=== PATIENT | male | born 1955 | race Caucasian/White ===

== ENCOUNTER 2021-09-12 12:39 | Outpatient (CLI) | payer OTHER ==
[2021-09-13 11:36] LABS: SARS-CoV-2 PCR by NAA Not Detected (NotDetected)
== END 2021-09-12 12:40 | disposition home or self-care (01) ==
LOC: LABBT 12:39
PROVIDERS: ATTEND Internal Medicine
DX: Z01.812 Encounter for preprocedural laboratory examination (principal); Z20.822 Contact with and (suspected) exposure to COVID-19; K59.00 Constipation, unspecified; Z86.010 Personal history of colon polyps
CPT/HCPCS: U0003; U0005

== ENCOUNTER 2021-09-17 06:42 | Day surgery (SDC) | payer OTHER ==
[2021-09-11 11:20] VITALS: BMI 42.3
[2021-09-17] MEDS ORDERED: PROPOFOL 200 MG/20 ML VIAL ONE (09:15)
[2021-09-17] MEDS ORDERED: Lidocaine 1% PF 5 ML VIAL ONE (09:15)
== END 2021-09-17 10:55 | disposition home or self-care (01) ==
LOC: SDC 06:42
PROVIDERS: ATTEND Internal Medicine
PROC: 0DBP8ZX Excision of Rectum, Via Natural or Artificial Opening Endoscopic, Diagnostic (ICD-10-PCS; principal; 2021-09-17)
PROC: 0DBM8ZX Excision of Descending Colon, Via Natural or Artificial Opening Endoscopic, Diagnostic (ICD-10-PCS; principal; 2021-09-17)
PROC: 0DBH8ZX Excision of Cecum, Via Natural or Artificial Opening Endoscopic, Diagnostic (ICD-10-PCS; principal; 2021-09-17)
PROC: 0DBL8ZX Excision of Transverse Colon, Via Natural or Artificial Opening Endoscopic, Diagnostic (ICD-10-PCS; principal; 2021-09-17)
DX: Z12.11 Encounter for screening for malignant neoplasm of colon (principal); D12.0 Benign neoplasm of cecum; D12.3 Benign neoplasm of transverse colon; D12.4 Benign neoplasm of descending colon; D12.8 Benign neoplasm of rectum; Q43.8 Other specified congenital malformations of intestine; K57.30 Diverticulosis of large intestine without perforation or abscess without bleeding; K59.09 Other constipation; E11.9 Type 2 diabetes mellitus without complications; I10 Essential (primary) hypertension; G47.30 Sleep apnea, unspecified; M48.00 Spinal stenosis, site unspecified; E66.01 Morbid (severe) obesity due to excess calories; Z68.41 Body mass index [BMI] 40.0-44.9, adult; Z86.010 Personal history of colon polyps; Z87.891 Personal history of nicotine dependence; Z79.4 Long term (current) use of insulin; Z79.899 Other long term (current) drug therapy
CPT/HCPCS: 36416; 88305; J2704

== ENCOUNTER 2021-11-11 17:54 | Outpatient (CLI) | payer OTHER ==
[2021-11-11 18:52] LABS: #Eosinphils 0.1 10x3/uL (0.0-0.5); #Monocytes 0.5 10x3/uL (0.0-1.1); #Neutrophils 4.2 10x3/uL (1.5-8.4); %Basophils 0.5 % (0.0-2.0); %Eosinophils 0.8 % (0.0-6.0); %Lymphocytes 26.4 % (18.0-47.0); %Monocytes 8.2 % (0.0-10.0); %Neutrophils 63.6 % (40.0-75.0); Hemoglobin 15.7 g/dL (13.5-17.5); Mean Corpuscular HGB CONC 32.6 g/dL (32.0-36.0); Mean Corpuscular Hemoglobin 29.7 pg (27.0-33.0); Mean Corpuscular Volume 91.1 fl (81.2-95.1); Mean Platelet Volume 11.9 fl (7.4-10.4); Platelet Count 157 10x3/uL (150-450); RBC Distribution Width 14.7 % (11.5-14.5); Red Blood Cell (RBC) Count 5.28 10x6/uL (4.32-5.72); White Blood Cell (WBC) Count 6.6 10x3/uL (3.5-10.5)
[2021-11-11 19:03] LABS: Anion Gap 16 mmol/L (10-20); BUN (Urea Nitrogen) 19 mg/dL (8.4-25.7); Calc. Creatinine Clearance 0 mL/min (70-130); Calcium 9.4 mg/dL (7.8-10.44); Carbon Dioxide 27 mmol/L (23-31); Chloride 105 mmol/L (98-107); Glucose 83 mg/dL (80-115); Potassium 5.2 mmol/L (3.5-5.1); Sodium 143 mmol/L (136-145)
[2021-11-12 14:33] LABS: SARS-CoV-2 PCR by NAA Not Detected (NotDetected)
== END 2021-11-11 17:55 | disposition home or self-care (01) ==
LOC: LABBT 17:54
PROVIDERS: ATTEND Internal Medicine
DX: Z01.818 Encounter for other preprocedural examination (principal); G56.02 Carpal tunnel syndrome, left upper limb; Z20.822 Contact with and (suspected) exposure to COVID-19
CPT/HCPCS: 80048; 85025; 93005; 93010; U0003; U0005

== ENCOUNTER 2021-11-14 09:43 | Day surgery (SDC) | payer OTHER ==
[2021-11-08 10:44] VITALS: BMI 42.3
[2021-11-14] MEDS ORDERED: Fentanyl 250 MCG/5 ML VIAL ONE (12:19)
[2021-11-14] MEDS ORDERED: Dexmedetomidine 200 MCG/2 ML VIAL ONE (12:20)
[2021-11-14] MEDS ORDERED: Xylocaine 1% w/ Epi 1:100K 10 ML VIAL ONE (12:39)
[2021-11-14] MEDS ORDERED: ceFAZolin 2 GM/Dextrose 50 ML IVPB ONE (15:02)
[2021-11-14] MEDS ORDERED: Lidocaine 1% PF 5 ML VIAL ONE (15:02)
[2021-11-14] MEDS ORDERED: PROPOFOL 200 MG/20 ML VIAL ONE (15:02)
[2021-11-14] MEDS ORDERED: Ondansetron PF 4 MG/2 ML Vial ONE (15:02)
[2021-11-14] MEDS ORDERED: Dexamethasone 20 MG/5 ML VIAL ONE (15:02)
== END 2021-11-14 17:28 | disposition home or self-care (01) ==
LOC: SDC 09:43
PROVIDERS: ATTEND Orthopaedic Surgery
PROC: 01N50ZZ Release Median Nerve, Open Approach (ICD-10-PCS; principal; 2021-11-14)
DX: G56.02 Carpal tunnel syndrome, left upper limb (principal); E11.9 Type 2 diabetes mellitus without complications; M10.9 Gout, unspecified; I10 Essential (primary) hypertension; Z79.4 Long term (current) use of insulin; Z79.84 Long term (current) use of oral hypoglycemic drugs; Z79.899 Other long term (current) drug therapy
CPT/HCPCS: 36416; J0690; J1100; J2405; J2704; J3010

== ENCOUNTER 2022-03-10 12:50 | Outpatient (CLI) | payer OTHER ==
[2022-03-10 13:30] LABS: #Eosinphils 0.2 10x3/uL (0.0-0.5); #Monocytes 0.3 10x3/uL (0.0-1.1); #Neutrophils 2.6 10x3/uL (1.5-8.4); %Basophils 0.6 % (0.0-2.0); %Eosinophils 3.5 % (0.0-6.0); %Monocytes 6.9 % (0.0-10.0); %Neutrophils 54.4 % (40.0-75.0); Hemoglobin 14.7 g/dL (13.5-17.5); Mean Corpuscular HGB CONC 33.3 g/dL (32.0-36.0); Mean Corpuscular Hemoglobin 30.2 pg (27.0-33.0); Mean Corpuscular Volume 90.6 fl (81.2-95.1); Mean Platelet Volume 11.9 fl (7.4-10.4); Platelet Count 151 10x3/uL (150-450); Red Blood Cell (RBC) Count 4.87 10x6/uL (4.32-5.72); White Blood Cell (WBC) Count 4.8 10x3/uL (3.5-10.5)
== END 2022-03-10 12:51 | disposition home or self-care (01) ==
LOC: LABBT 12:50
PROVIDERS: ATTEND Family Medicine
DX: Z01.818 Encounter for other preprocedural examination (principal); G56.01 Carpal tunnel syndrome, right upper limb; Z20.822 Contact with and (suspected) exposure to COVID-19
CPT/HCPCS: 85025; 93005; 93010; U0003; U0005

== ENCOUNTER 2022-03-13 09:00 | Day surgery (SDC) | payer OTHER ==
[2022-03-11 13:56] VITALS: BMI 41.5
[2022-03-13] MEDS ORDERED: Lidocaine 1% w/Epinephrine 1:100K 20 ML VIAL ONE (12:43)
[2022-03-13] MEDS ORDERED: fentaNYL Citrate/PF 100 MCG/2 ML SYRINGE ONE (12:54)
[2022-03-13] MEDS ORDERED: CEFAZOLIN 2 GM VIAL ONE (12:54)
[2022-03-13] MEDS ORDERED: Sodium Chloride 0.9% 100 ML ONE (12:54)
[2022-03-13] MEDS ORDERED: Lidocaine 1% PF 5 ML VIAL ONE (13:02)
[2022-03-13] MEDS ORDERED: Ketorolac Tromethamine 30 MG/ML VIAL ONE (13:02)
[2022-03-13] MEDS ORDERED: Ondansetron PF 4 MG/2 ML Vial ONE (13:02)
[2022-03-13] MEDS ORDERED: PROPOFOL 200 MG/20 ML VIAL ONE (13:02)
[2022-03-13] MEDS ORDERED: HYDROcodone/Acetaminophen 5/325 mg Tablet ONE (14:50)
== END 2022-03-13 15:17 | disposition home or self-care (01) ==
LOC: SDC 09:00
PROVIDERS: ATTEND Orthopaedic Surgery
PROC: 01N50ZZ Release Median Nerve, Open Approach (ICD-10-PCS; principal; 2022-03-13)
DX: G56.01 Carpal tunnel syndrome, right upper limb (principal); G89.29 Other chronic pain; E11.9 Type 2 diabetes mellitus without complications; M10.9 Gout, unspecified; I10 Essential (primary) hypertension; Z79.4 Long term (current) use of insulin; Z79.84 Long term (current) use of oral hypoglycemic drugs; Z79.899 Other long term (current) drug therapy
CPT/HCPCS: 36416; J0690; J1885; J2405; J2704; J3490

== ENCOUNTER → 2022-11-12 | Day surgery (SDC) | payer MEDICARE ==
[2022-11-11 13:03] VITALS: BMI 41.5
[~2022-11-12] MED LIST: FENTANYL 50 MCG/ML 1 ML VIAL ONE; Heparin 10,000 UNITS/ 10 ML VIAL ONE; Lidocaine 1% (PF) 30 ML VIAL ONE; Midazolam HCl 2 mg/2 ml Vial ONE
[2022-11-12 11:20] LABS: #Eosinphils 0.1 thou/uL (0.0-0.7); #Lymphocytes 1.7 thou/uL (1.20-3.40); #Monocytes 0.4 thou/uL (0.11-0.59); #Neutrophils 4.2 thou/uL (1.40-6.50); %Basophils 0.4 % (0.0-1.0); %Eosinophils 0.8 % (0.0-10.0); %Lymphocytes 26.9 % (21.0-51.0); %Monocytes 5.8 % (0.0-10.0); Hemoglobin 16.2 g/dL (14.0-18.0); Mean Corpuscular HGB CONC 32.4 g/dL (32.0-36.0); Mean Corpuscular Hemoglobin 30.7 pg (27.0-31.0); Mean Corpuscular Volume 94.5 fl (78.0-98.0); Platelet Count 131 10x3/uL (130-400); Red Blood Cell (RBC) Count 5.29 mill/uL (4.70-6.10); White Blood Cell (WBC) Count 6.3 10x3/uL (4.8-10.8)
[2022-11-12 11:40] LABS: Anion Gap 13 mmol/L (10-20); BUN (Urea Nitrogen) 15 mg/dL (8.4-25.7); Calc. Creatinine Clearance 129 mL/min (70-130); Calcium 9.7 mg/dL (7.8-10.44); Carbon Dioxide 26 mmol/L (23-31); Chloride 104 mmol/L (98-107); Estimated GFR 78; Glucose 98 mg/dL (80-115); Potassium 4.8 mmol/L (3.5-5.1); Sodium 138 mmol/L (136-145)
== END | disposition home or self-care (01) ==
LOC: CCL 09:47
PROVIDERS: ATTEND Internal Medicine Cardiovascular Disease
PROC: 4A023N6 Measurement of Cardiac Sampling and Pressure, Right Heart, Percutaneous Approach (ICD-10-PCS; principal; 2022-11-12)
PROC: B2111ZZ Fluoroscopy of Multiple Coronary Arteries using Low Osmolar Contrast (ICD-10-PCS; 2022-11-12)
DX: I25.10 Atherosclerotic heart disease of native coronary artery without angina pectoris (principal); I25.82 Chronic total occlusion of coronary artery; I25.84 Coronary atherosclerosis due to calcified coronary lesion; I35.0 Nonrheumatic aortic (valve) stenosis; E11.40 Type 2 diabetes mellitus with diabetic neuropathy, unspecified; I10 Essential (primary) hypertension; E78.5 Hyperlipidemia, unspecified; M10.9 Gout, unspecified; G47.33 Obstructive sleep apnea (adult) (pediatric); I87.8 Other specified disorders of veins; E66.01 Morbid (severe) obesity due to excess calories; Z68.41 Body mass index [BMI] 40.0-44.9, adult; Z87.891 Personal history of nicotine dependence; Z79.4 Long term (current) use of insulin; Z79.84 Long term (current) use of oral hypoglycemic drugs; Z79.85 Long-term (current) use of injectable non-insulin antidiabetic drugs; Z79.899 Other long term (current) drug therapy
CPT/HCPCS: 36415; 80048; 85025; 93456; 99152; 99153; C1751; C1769; J1644; J2001; J2250; J3010

== ENCOUNTER 2022-11-18 09:56 | Day surgery (SDC) | payer MEDICARE, OTHER ==
[2022-11-17 09:23] VITALS: BMI 41.5
[2022-11-18] MEDS ORDERED: Lidocaine 1% PF 5 ML VIAL ONE (11:50)
[2022-11-18] MEDS ORDERED: Ondansetron PF 4 MG/2 ML Vial ONE (12:12)
== END 2022-11-18 13:10 | disposition home or self-care (01) ==
LOC: SDC 09:56
PROVIDERS: ATTEND Internal Medicine Cardiovascular Disease
PROC: B246ZZ4 Ultrasonography of Right and Left Heart, Transesophageal (ICD-10-PCS; principal; 2022-11-18)
DX: I35.0 Nonrheumatic aortic (valve) stenosis (principal); E11.40 Type 2 diabetes mellitus with diabetic neuropathy, unspecified; I10 Essential (primary) hypertension; I87.2 Venous insufficiency (chronic) (peripheral); I73.9 Peripheral vascular disease, unspecified; Z87.891 Personal history of nicotine dependence; Z79.4 Long term (current) use of insulin; Z79.82 Long term (current) use of aspirin; Z79.84 Long term (current) use of oral hypoglycemic drugs; Z79.85 Long-term (current) use of injectable non-insulin antidiabetic drugs; Z79.899 Other long term (current) drug therapy
CPT/HCPCS: 93005; 93010; 93312; J2405

== ENCOUNTER 2022-11-21 10:30 | Inpatient (IN) | payer MEDICARE ==
[2022-11-24] MEDS ORDERED: Albumin 5% 500 ML ONE (07:53)
[2022-11-24 08:17] LABS: SARS-CoV-2 NAA Rapid Test Not Detected (NotDetected)
[2022-11-24] MEDS ORDERED: Esmolol 100 MG/10 ML VIAL IVP SCH (08:30)
[2022-11-24] MEDS ORDERED: Phenylephrine 10 MG/ML VIAL ONE (08:40)
[2022-11-24] MEDS ORDERED: Nitroglycerin 50 MG/250 ML BOT 250 ML ONE (08:40)
[2022-11-24] MEDS ORDERED: Midazolam HCl 5 mg/5 ml Vial ONE (08:40)
[2022-11-24] MEDS ORDERED: Norepinephrine 4 MG/4 ML VIAL ONE (08:40)
[2022-11-24] MEDS ORDERED: Fentanyl 250 MCG/5 ML VIAL ONE ×2 (08:40)
[2022-11-24] MEDS ORDERED: Lidocaine 1% MPF 2 ML VIAL ONE (09:14)
[2022-11-24] MEDS ORDERED: Dexamethasone 4 mg/ml Vial ONE (09:42)
[2022-11-24] MEDS ORDERED: Bupivacaine HCl 0.5%/Epinephrine 1:200,000/PF 30 ml Vial ONE (09:42)
[2022-11-24] MEDS ORDERED: Heparin 10,000 UNITS/1 ML VIAL 30,000 UNITS in Sodium Chloride 0.9% 1,000 ML FS SCH (09:45)
[2022-11-24] MEDS ORDERED: PHENYLEPHRINE-NS 100 MCG/ML 10 ML SYRINGE ONE ×2 (09:53→10:12)
[2022-11-24] MEDS ORDERED: Sodium Chloride 0.9% 100 ML ONE (10:06)
[2022-11-24] MEDS ORDERED: CEFAZOLIN 2 GM VIAL ONE (10:06)
[2022-11-24] MEDS ORDERED: Calcium Chloride 1 GM/10 ML Abboject SYRINGE ONE (10:12)
[2022-11-24] MEDS ORDERED: Heparin 5,000 UNITS/ML VIAL ONE (10:12)
[2022-11-24] MEDS ORDERED: Lidocaine 2% PF 100 mg/5 ml Syringe ONE (10:12)
[2022-11-24] MEDS ORDERED: PROPOFOL 200 MG/20 ML VIAL ONE (10:12)
[2022-11-24] MEDS ORDERED: Thrombin 5000 UNITS/5 ML VIAL ONE (10:12)
[2022-11-24] MEDS ORDERED: Lidocaine 1% PF 5 ML VIAL ONE (10:12)
[2022-11-24] MEDS ORDERED: Papaverine 60 MG/2 ML VIAL ONE (10:12)
[2022-11-24] MEDS ORDERED: Protamine Sulfate 50 MG/5 ML VIAL ONE (10:12)
[2022-11-24] MEDS ORDERED: Vancomycin 1 GM VIAL ONE ×2 (10:12→11:15)
[2022-11-24] MEDS ORDERED: Heparin 30,000 units/30 ml VIAL ONE (10:12)
[2022-11-24] MEDS ORDERED: Sodium Bicarb 50 MEQ/50 ML VIAL ONE (10:12)
[2022-11-24] MEDS ORDERED: Aminocaproic Acid 5 GM/20 ML VIAL ONE (10:12)
[2022-11-24] MEDS ORDERED: Magnesium 5 GM/10 ML VIAL ONE (10:12)
[2022-11-24] MEDS ORDERED: Potassium Chloride 60 MEQ/30 ML VIAL ONE (10:12)
[2022-11-24] MEDS ORDERED: Esmolol 100 MG/10 ML VIAL ONE (10:12)
[2022-11-24] MEDS ORDERED: Rocuronium Bromide 10 MG/ML (10ML VIAL) ONE (10:12)
[2022-11-24] MEDS ORDERED: Vecuronium 10 MG VIAL ONE (10:12)
[2022-11-24] MEDS ORDERED: Mannitol 12.5 GM/50 ML ONE (10:12)
[2022-11-24] MEDS ORDERED: Cardioplegic Soln 1,000 ML BAG ONE (10:12)
[2022-11-24] MEDS ORDERED: Rocuronium Bromide 50 MG/5 ML VIAL ONE ×2 (13:33→13:34)
[2022-11-24] MEDS ORDERED: Morphine 4 MG/ML VIAL ONE (15:00)
[2022-11-24 15:04] LABS: Actual Bicarbonate (HCO3a) 21.7 mEq/L (22-28); Base Excess (BEa) -4.2 mEq/L (-2.0 to +3.0); CO2 Tension 42.8 mmHg (35.0-45.0); Calcium, Ionized (arterial) 1.16 mmol/L (1.12-1.30); O2 Tension (PaO2), arterial 79.8 mmHg (> 80.0); Potassium - ABG Lab 4.26 mmol/L (3.70-5.30); Puncture Site Arterial Line; pH, Arterial 7.32 (7.35-7.45)
[2022-11-24] MEDS ORDERED: Mag-Al 1200 mg/1200 mg/30 ML UDCUP PO PRN (15:13)
[2022-11-24] MEDS ORDERED: Post-Op Insulin Drip Protocol IVPB ONE (15:13)
[2022-11-24] MEDS ORDERED: Fentanyl 100 MCG/2 ML VIAL SLOW IVP PRN ×2 (15:13)
[2022-11-24] MEDS ORDERED: hydrALAZINE 20 MG/ML VIAL SLOW IVP PRN (15:13)
[2022-11-24] MEDS ORDERED: NOREPINEPHRINE 8 MG/250 ML-D5W 250 ML IVPB PRN (15:13)
[2022-11-24] MEDS ORDERED: Morphine 2 MG/ML VIAL SLOW IVP PRN (15:13)
[2022-11-24] MEDS ORDERED: Potassium Chloride 20 MEQ in Lactated Ringer's 1,000 ML IV SCH (15:13)
[2022-11-24] MEDS ORDERED: Ondansetron PF 4 MG/2 ML Vial IVP PRN (15:13)
[2022-11-24] MEDS ORDERED: Bisacodyl 5 MG TAB PO PRN (15:13)
[2022-11-24] MEDS ORDERED: Ipratropium/Albuterol 3 ML NEB NEB PRN (15:13)
[2022-11-24] MEDS ORDERED: Hetastarch 6% 500 ML 500 ML IVPB PRN (15:13)
[2022-11-24] MEDS ORDERED: niCARdipine 25 MG in Sodium Chloride 0.9% 250 ML 250 ML IVPB PRN (15:13)
[2022-11-24] MEDS ORDERED: Bisacodyl 10 MG SUPP PR PRN (15:13)
[2022-11-24] MEDS ORDERED: Guaifenesin DM 100-10/5 ML UDCUP PO PRN (15:13)
[2022-11-24] MEDS ORDERED: Acetaminophen 325 MG TAB PO PRN (15:13)
[2022-11-24] MEDS ORDERED: Potassium Chloride 20 MEQ/100 ML PREMIX BAG IVPB PRN (15:13)
[2022-11-24] MEDS ORDERED: traMADol HCl 50 MG TAB PO PRN ×2 (15:13)
[2022-11-24] MEDS ORDERED: HUMULIN R 100 UNITS in Sodium Chloride 0.9% 100 ML IVPB SCH (15:30)
[2022-11-24] MEDS ORDERED: Dextrose 5% in Water 1,000 ML IV PRN (15:30)
[2022-11-24] MEDS ORDERED: Dextrose 50% Abboject 50 ML SYRINGE SLOW IVP PRN (15:30)
[2022-11-24] MEDS: Insulin Regular 300 UNITS/3 ML VIAL SC PRN ×3 (15:36→22:50)
[2022-11-24 15:48] VITALS: BMI 44.2
[2022-11-24 15:56] LABS: Hemoglobin 13.6 g/dL (14.0-18.0); Mean Corpuscular HGB CONC 32.6 g/dL (32.0-36.0); Mean Corpuscular Hemoglobin 30.9 pg (27.0-31.0); Mean Corpuscular Volume 94.9 fl (78.0-98.0); RBC Distribution Width 14.1 % (11.5-14.5); White Blood Cell (WBC) Count 11.7 10x3/uL (4.8-10.8)
[2022-11-24 15:57] LABS: #Eosinphils 0.1 thou/uL (0.0-0.7); #Lymphocytes 2.4 thou/uL (1.20-3.40); #Monocytes 0.9 thou/uL (0.11-0.59); #Neutrophils 8.2 thou/uL (1.40-6.50); %Basophils 0.2 % (0.0-1.0); %Eosinophils 1.3 % (0.0-10.0); %Lymphocytes 20.5 % (21.0-51.0); %Monocytes 7.6 % (0.0-10.0); %Neutrophils 70.5 % (42.0-75.0)
[2022-11-24 16:01] LABS: INR-International Normal Ratio 1.2; PTT 33.6 sec (22.9-36.1); Prothrombin Time 15.9 sec (12.0-14.7)
[2022-11-24 16:11] LABS: MDiff Complete? YES; Mean Platelet Volume 10.9 fL (7.4-10.4); Platelet Count 114 10x3/uL (130-400); Platelet Morphology Comment Appears Decreased; Polychromasia SLIGHT = 2-3 cells (100X) (0-2/hpf)
[2022-11-24 17:19] LABS: Anion Gap 19 mmol/L (10-20); BUN (Urea Nitrogen) 14 mg/dL (8.4-25.7); Calc. Creatinine Clearance 160 mL/min (70-130); Calcium 8.2 mg/dL (7.8-10.44); Carbon Dioxide 18 mmol/L (23-31); Chloride 109 mmol/L (98-107); Estimated GFR 94; Glucose 150 mg/dL (80-115); Potassium 4.7 mmol/L (3.5-5.1); Sodium 141 mmol/L (136-145)
[2022-11-24 17:37] LABS: Actual Bicarbonate (HCO3a) 18.2 mEq/L (22-28); Base Excess (BEa) -2.4 mEq/L (-2.0 to +3.0); Carboxyhemoglobin (COHb) 1.2 gm% (0.0-3.0); Hemoglobin (Hb) 14.2 g/dL (14.0-18.0); O2 Tension (PaO2), arterial 73.5 mmHg (> 80.0); Potassium - ABG Lab 4.34 mmol/L (3.70-5.30); pH, Arterial 7.53 (7.35-7.45)
[2022-11-24 17:48] LABS: CO2 Tension 22.2 mmHg (35.0-45.0); Puncture Site Arterial Line
[2022-11-24] MEDS: Ketorolac Tromethamine 30 MG/ML VIAL IVP SCH (17:59)
[2022-11-24] MEDS: CEFAZOLIN 3 GM in Sodium Chloride 0.9% 100 ML IVPB SCH (18:01)
[2022-11-24] MEDS ORDERED: Atorvastatin Calcium 20 MG TAB PO SCH (21:00)
[2022-11-24] MEDS ORDERED: Famotidine/PF 20 mg/2ml Vial SLOW IVP SCH (21:00)
[2022-11-24 21:01] LABS: Hemoglobin 13.3 g/dL (14.0-18.0)
[2022-11-24 21:05] LABS: Potassium 4.5 mmol/L (3.5-5.1)
[2022-11-25] MEDS: Ketorolac Tromethamine 30 MG/ML VIAL IVP SCH ×4 (00:20→17:59)
[2022-11-25] MEDS: Insulin Regular 300 UNITS/3 ML VIAL SC PRN ×2 (01:30→06:09)
[2022-11-25] MEDS: CEFAZOLIN 3 GM in Sodium Chloride 0.9% 100 ML IVPB SCH ×2 (01:54→10:22)
[2022-11-25 04:33] LABS: #Lymphocytes 0.7 thou/uL (1.20-3.40); #Monocytes 0.5 thou/uL (0.11-0.59); #Neutrophils 5.5 thou/uL (1.40-6.50); %Basophils 0.2 % (0.0-1.0); %Eosinophils 0.2 % (0.0-10.0); %Lymphocytes 10.4 % (21.0-51.0); %Monocytes 7.5 % (0.0-10.0); %Neutrophils 81.7 % (42.0-75.0); Hemoglobin 12.5 g/dL (14.0-18.0); Mean Corpuscular HGB CONC 33.6 g/dL (32.0-36.0); Mean Corpuscular Hemoglobin 31.5 pg (27.0-31.0); Mean Corpuscular Volume 93.6 fl (78.0-98.0); Mean Platelet Volume 11.1 fL (7.4-10.4); Platelet Count 96 10x3/uL (130-400); RBC Distribution Width 14.1 % (11.5-14.5); Red Blood Cell (RBC) Count 3.97 mill/uL (4.70-6.10); White Blood Cell (WBC) Count 6.8 10x3/uL (4.8-10.8)
[2022-11-25 04:52] LABS: Anion Gap 12 mmol/L (10-20); BUN (Urea Nitrogen) 17 mg/dL (8.4-25.7); Calc. Creatinine Clearance 156 mL/min (70-130); Calcium 8.2 mg/dL (7.8-10.44); Carbon Dioxide 23 mmol/L (23-31); Chloride 110 mmol/L (98-107); Estimated GFR 92; Glucose 132 mg/dL (80-115); Potassium 4.6 mmol/L (3.5-5.1); Sodium 140 mmol/L (136-145)
[2022-11-25] MEDS: Magnesium 2 GM/50 ML(in water) 2 GM in Premix Bag 1 BAG IVPB SCH (08:08)
[2022-11-25] MEDS: Aspirin 325 MG TAB PO SCH (08:09)
[2022-11-25] MEDS ORDERED: Dextrose 5% in Water 1,000 ML IV PRN (11:32)
[2022-11-25] MEDS ORDERED: Dextrose 50% Abboject 50 ML SYRINGE SLOW IVP PRN (11:32)
[2022-11-25] MEDS ORDERED: HumaLOG 300 UNITS/3 ML VIAL SC PRN (11:32)
[2022-11-25] MEDS ORDERED: Insulin Glargine 30 UNITS/0.3 ML VIAL SC PRN (15:19)
[2022-11-25] MEDS: Atorvastatin Calcium 40 MG TAB PO SCH (20:58)
[2022-11-26] MEDS: Ketorolac Tromethamine 30 MG/ML VIAL IVP SCH ×5 (00:16→23:50)
[2022-11-26] MEDS ORDERED: Bisacodyl 5 MG TAB PO PRN (07:15)
[2022-11-26] MEDS ORDERED: Milk Of Magnesia 30 ML UDCUP PO PRN (07:15)
[2022-11-26] MEDS ORDERED: Guaifenesin DM 100-10/5 ML UDCUP PO PRN (07:15)
[2022-11-26] MEDS ORDERED: Mineral Oil ENEMA PR PRN (07:15)
[2022-11-26] MEDS ORDERED: Zolpidem Tartrate 5 MG TAB PO PRN (07:15)
[2022-11-26] MEDS ORDERED: Bisacodyl 10 MG SUPP PR PRN (07:15)
[2022-11-26] MEDS ORDERED: diphenhydrAMINE 25 MG CAP PO PRN (07:15)
[2022-11-26] MEDS ORDERED: Nitroglycerin 0.4 MG TAB (25 Tab Bottle) SL PRN (07:15)
[2022-11-26] MEDS ORDERED: Mag-Al 1200 mg/1200 mg/30 ML UDCUP PO PRN (07:15)
[2022-11-26] MEDS: Pregabalin 75 MG CAP PO SCH ×2 (09:16→20:24)
[2022-11-26] MEDS: Magnesium Oxide 400 MG TAB PO SCH (09:17)
[2022-11-26] MEDS: Potassium Chloride 10 MEQ TAB PO SCH (09:17)
[2022-11-26] MEDS: Aspirin 325 MG TAB PO SCH (09:17)
[2022-11-26] MEDS: Furosemide 40 MG TAB PO SCH (09:17)
[2022-11-26] MEDS: Allopurinol 300 MG TAB PO SCH (09:18)
[2022-11-26] MEDS: Empagliflozin 25 MG TAB PO SCH (09:18)
[2022-11-26] MEDS: DULoxetine 60 MG CAP PO SCH (09:18)
[2022-11-26] MEDS: Magnesium 2 GM/50 ML(in water) 2 GM in Premix Bag 1 BAG IVPB SCH (09:19)
[2022-11-26] MEDS: Insulin Regular 300 UNITS/3 ML VIAL SC PRN ×2 (09:31→13:33)
[2022-11-26] MEDS: Atorvastatin Calcium 40 MG TAB PO SCH (20:24)
[2022-11-27] MEDS: Insulin Regular 300 UNITS/3 ML VIAL SC PRN ×3 (06:08→21:01)
[2022-11-27] MEDS: Ketorolac Tromethamine 30 MG/ML VIAL IVP SCH ×3 (06:08→18:00)
[2022-11-27] MEDS: Furosemide 40 MG TAB PO SCH (09:12)
[2022-11-27] MEDS: Potassium Chloride 10 MEQ TAB PO SCH (09:12)
[2022-11-27] MEDS: Pregabalin 75 MG CAP PO SCH ×2 (09:12→19:46)
[2022-11-27] MEDS: Empagliflozin 25 MG TAB PO SCH (09:12)
[2022-11-27] MEDS: Allopurinol 300 MG TAB PO SCH (09:12)
[2022-11-27] MEDS: Aspirin 325 MG TAB PO SCH (09:12)
[2022-11-27] MEDS: DULoxetine 60 MG CAP PO SCH (09:13)
[2022-11-27] MEDS: Magnesium Oxide 400 MG TAB PO SCH (09:13)
[2022-11-27] MEDS: Atorvastatin Calcium 40 MG TAB PO SCH (19:46)
[2022-11-28] MEDS: Insulin Regular 300 UNITS/3 ML VIAL SC PRN (05:38)
[2022-11-28] MEDS: Aspirin 325 MG TAB PO SCH (09:03)
[2022-11-28] MEDS: DULoxetine 60 MG CAP PO SCH (09:03)
[2022-11-28] MEDS: Allopurinol 300 MG TAB PO SCH (09:04)
[2022-11-28] MEDS: Empagliflozin 25 MG TAB PO SCH (09:04)
[2022-11-28] MEDS: Pregabalin 75 MG CAP PO SCH (09:04)
[2022-11-28] MEDS: Magnesium Oxide 400 MG TAB PO SCH (09:04)
[2022-11-28] MEDS: Furosemide 40 MG TAB PO SCH (09:04)
[2022-11-28] MEDS: Potassium Chloride 10 MEQ TAB PO SCH (09:04)
[2022-11-28 11:37] VITALS: BP 117/61; TEMP 97.8
[2022-12-01 14:29] LABS: Actual Bicarbonate (HCO3a) 22.7 mEq/L (22-28); Analyzer IN Cardio OR; Base Excess (BEa) -2.6 mEq/L (-2.0 to +3.0); CO2 Tension 41.5 mmHg (35.0-45.0); Calcium, Ionized (arterial) 1.07 mmol/L (1.12-1.30); Carboxyhemoglobin (COHb) 0.4 gm% (0.0-3.0); Hemoglobin (Hb) 11.7 g/dL (14.0-18.0); O2 Tension (PaO2), arterial 276.9 mmHg (> 80.0); Potassium - ABG Lab 5.02 mmol/L (3.70-5.30); pH, Arterial 7.36 (7.35-7.45)
[2022-12-01 14:29] LABS: Actual Bicarbonate (HCO3a) 22.7 mEq/L (22-28); Analyzer IN Cardio OR; Base Excess (BEa) -2.5 mEq/L (-2.0 to +3.0); CO2 Tension 41.1 mmHg (35.0-45.0); Calcium, Ionized (arterial) 1.08 mmol/L (1.12-1.30); Carboxyhemoglobin (COHb) 0.7 gm% (0.0-3.0); Hemoglobin (Hb) 11.9 g/dL (14.0-18.0); Potassium - ABG Lab 4.68 mmol/L (3.70-5.30); pH, Arterial 7.36 (7.35-7.45)
[2022-12-01 14:29] LABS: Analyzer IN Cardio OR; Base Excess (BEa) -1.6 mEq/L (-2.0 to +3.0); CO2 Tension 38.6 mmHg (35.0-45.0); Calcium, Ionized (arterial) 1.13 mmol/L (1.12-1.30); Carboxyhemoglobin (COHb) 0.8 gm% (0.0-3.0); O2 Tension (PaO2), arterial 73.7 mmHg (> 80.0); Potassium - ABG Lab 4.41 mmol/L (3.70-5.30); pH, Arterial 7.39 (7.35-7.45)
[2022-12-01 14:30] LABS: Analyzer IN Cardio OR; Base Excess (BEa) -3.3 mEq/L (-2.0 to +3.0); CO2 Tension 35.2 mmHg (35.0-45.0); Calcium, Ionized (arterial) 1.07 mmol/L (1.12-1.30); Carboxyhemoglobin (COHb) 0.9 gm% (0.0-3.0); Hemoglobin (Hb) 12.2 g/dL (14.0-18.0); O2 Tension (PaO2), arterial 263.5 mmHg (> 80.0); Potassium - ABG Lab 4.77 mmol/L (3.70-5.30); pH, Arterial 7.39 (7.35-7.45)
[2022-12-01 14:30] LABS: Analyzer IN Cardio OR; CO2 Tension 34.6 mmHg (35.0-45.0); Carboxyhemoglobin (COHb) 0.6 gm% (0.0-3.0); Hemoglobin (Hb) 14.4 g/dL (14.0-18.0); O2 Tension (PaO2), arterial 192.1 mmHg (> 80.0); Potassium - ABG Lab 4.33 mmol/L (3.70-5.30)
[2022-12-01 14:30] LABS: Analyzer IN Cardio OR; Base Excess (BEa) -2.2 mEq/L (-2.0 to +3.0); CO2 Tension 46.3 mmHg (35.0-45.0); Calcium, Ionized (arterial) 1.17 mmol/L (1.12-1.30); Carboxyhemoglobin (COHb) 1.4 gm% (0.0-3.0); Hemoglobin (Hb) 15.2 g/dL (14.0-18.0); O2 Tension (PaO2), arterial 87.1 mmHg (> 80.0); Potassium - ABG Lab 4.41 mmol/L (3.70-5.30); pH, Arterial 7.33 (7.35-7.45)
[2022-12-01 14:31] LABS: Puncture Site Arterial Line
[2022-12-01 14:31] LABS: Puncture Site Arterial Line
[2022-12-01 14:31] LABS: Puncture Site Arterial Line
[2022-12-01 14:32] LABS: Puncture Site Arterial Line
[2022-12-01 14:32] LABS: Puncture Site Arterial Line
[2022-12-01 14:32] LABS: Puncture Site Arterial Line
== END 2022-11-28 12:05 | disposition home or self-care (01) | DRG 220 ==
LOC: SURG A 11-24 06:36 → CCU 11-24 14:50 → 2NO 11-26 18:24
PROVIDERS: ADMIT Thoracic Surgery (Cardiothoracic Vascular Surgery); ATTEND Thoracic Surgery (Cardiothoracic Vascular Surgery)
PROC: 02100Z9 Bypass Coronary Artery, One Artery from Left Internal Mammary, Open Approach (ICD-10-PCS; principal; 2022-11-24)
PROC: 02RF08Z Replacement of Aortic Valve with Zooplastic Tissue, Open Approach (ICD-10-PCS; 2022-11-24)
PROC: 021009W Bypass Coronary Artery, One Artery from Aorta with Autologous Venous Tissue, Open Approach (ICD-10-PCS; 2022-11-24)
PROC: 06BQ0ZZ Excision of Left Saphenous Vein, Open Approach (ICD-10-PCS; 2022-11-24)
PROC: 5A1221Z Performance of Cardiac Output, Continuous (ICD-10-PCS; 2022-11-24)
PROC: 02L70CK Occlusion of Left Atrial Appendage with Extraluminal Device, Open Approach (ICD-10-PCS; 2022-11-24)
PROC: 4A133R1 Monitoring of Arterial Saturation, Peripheral, Percutaneous Approach (ICD-10-PCS; 2022-11-24)
PROC: 30233J1 Transfusion of Nonautologous Serum Albumin into Peripheral Vein, Percutaneous Approach (ICD-10-PCS; 2022-11-24)
PROC: 5A09457 Assistance with Respiratory Ventilation, 24-96 Consecutive Hours, Continuous Positive Airway Pressure (ICD-10-PCS; 2022-11-25)
DX: I25.10 Atherosclerotic heart disease of native coronary artery without angina pectoris (principal); Z68.41 Body mass index [BMI] 40.0-44.9, adult; I35.0 Nonrheumatic aortic (valve) stenosis; E78.5 Hyperlipidemia, unspecified; I10 Essential (primary) hypertension; E66.9 Obesity, unspecified; E11.40 Type 2 diabetes mellitus with diabetic neuropathy, unspecified; I87.2 Venous insufficiency (chronic) (peripheral); Z20.822 Contact with and (suspected) exposure to COVID-19; Z79.899 Other long term (current) drug therapy; Z79.84 Long term (current) use of oral hypoglycemic drugs; Z98.890 Other specified postprocedural states; Z83.3 Family history of diabetes mellitus; Z82.49 Family history of ischemic heart disease and other diseases of the circulatory system
CPT/HCPCS: 36416; 36430; 71045; 80048; 82805; 85025; 85610; 85730; 86850; 86900; 86901; 93005; 93010; 93798; 94002; 94150; 94660; C1713; C1751; C1776; C1889; J1100; J1642; J1644; J1815; J1885; J2001; J2150; J2250; J2270; J2370; J2440; J2704; J2720; J3010; J3370; J3475; J3480; J3490; J7120; P9045; S0017; S0028; U0002

== ENCOUNTER 2023-05-19 09:48 | Outpatient (CLI) | payer MEDICARE ==
[2023-05-19 11:18] LABS: #Eosinphils 0.1 10x3/uL (0.0-0.5); #Monocytes 0.5 10x3/uL (0.0-1.1); #Neutrophils 5.6 10x3/uL (1.5-8.4); %Basophils 0.4 % (0.0-2.0); %Eosinophils 0.7 % (0.0-6.0); %Lymphocytes 18.4 % (18.0-47.0); %Monocytes 6.5 % (0.0-10.0); %Neutrophils 73.3 % (40.0-75.0); Hematocrit 49.1 % (38.8-50.0); Hemoglobin 16.4 g/dL (13.5-17.5); Mean Corpuscular HGB CONC 33.4 g/dL (32.0-36.0); Mean Corpuscular Volume 86.9 fl (81.2-95.1); Mean Platelet Volume 11.8 fl (7.4-10.4); Platelet Count 191 10x3/uL (150-450); RBC Distribution Width 16.4 % (11.5-14.5); Red Blood Cell (RBC) Count 5.65 10x6/uL (4.32-5.72); White Blood Cell (WBC) Count 7.6 10x3/uL (3.5-10.5)
[2023-05-19 11:25] LABS: Anion Gap 20 mmol/L (10-20); BUN (Urea Nitrogen) 29 mg/dL (8.4-25.7); Calc. Creatinine Clearance 0 mL/min (70-130); Calcium 9.9 mg/dL (7.8-10.44); Carbon Dioxide 27 mmol/L (23-31); Chloride 94 mmol/L (98-107); Estimated GFR 55; Glucose 188 mg/dL (80-115); Potassium 4.5 mmol/L (3.5-5.1); Sodium 136 mmol/L (136-145)
== END 2023-05-19 09:49 | disposition home or self-care (01) ==
LOC: LABBT 09:48
PROVIDERS: ATTEND Orthopaedic Surgery
DX: Z01.818 Encounter for other preprocedural examination (principal); M65.332 Trigger finger, left middle finger
CPT/HCPCS: 80048; 85025; 93005; 93010

== ENCOUNTER 2023-05-21 07:39 | Day surgery (SDC) | payer MEDICARE ==
[2023-05-19 10:30] VITALS: BMI 39.4
[2023-05-21] MEDS ORDERED: Sodium Chloride 0.9% 100 ML ONE (09:43)
[2023-05-21] MEDS ORDERED: CEFAZOLIN 2 GM VIAL ONE (09:43)
[2023-05-21] MEDS ORDERED: Midazolam HCl 2 mg/2 ml Vial ONE (10:49)
[2023-05-21] MEDS ORDERED: Ketamine 50 MG/ML (10ML VIAL) ONE (10:50)
[2023-05-21] MEDS ORDERED: fentaNYL PF 100 MCG/2 ML SYRINGE ONE (10:50)
[2023-05-21] MEDS ORDERED: Propofol 500 MG/50 ML VIAL ONE (10:50)
[2023-05-21] MEDS ORDERED: methylPREDNISolone Acetate 40 mg/ml Vial ONE (11:00)
== END 2023-05-21 12:17 | disposition home or self-care (01) ==
LOC: SDC 07:39
PROVIDERS: ATTEND Orthopaedic Surgery
PROC: 0LN80ZZ Release Left Hand Tendon, Open Approach (ICD-10-PCS; principal; 2023-05-21)
DX: M65.332 Trigger finger, left middle finger (principal); M65.342 Trigger finger, left ring finger
CPT/HCPCS: 36416; J1030; J2250; J2704; J3490

== ENCOUNTER 2023-11-10 08:02 | Outpatient (CLI) | payer MEDICARE | END 2023-11-10 08:03 | disposition home or self-care (01) | LOC: CT 08:02 | PROVIDERS: ATTEND Urology | DX: R36.1 Hematospermia (principal); N28.1 Cyst of kidney, acquired; K80.20 Calculus of gallbladder without cholecystitis without obstruction; L92.9 Granulomatous disorder of the skin and subcutaneous tissue, unspecified; Z87.891 Personal history of nicotine dependence; Z87.898 Personal history of other specified conditions | CPT/HCPCS: 74178; 82565 ==

== ENCOUNTER 2023-11-16 16:08 | Emergency (ER) | payer MEDICARE, OTHER ==
[2023-11-16] MEDS ORDERED: Acetaminophen 500 MG TAB ONE (16:36)
[2023-11-16] MEDS ORDERED: Sodium Chloride 0.9% 100 ML ONE (16:37)
[2023-11-16] MEDS ORDERED: cefTRIAXone (ROCEPHIN) 1 GM VIAL ONE (16:37)
[2023-11-16 16:55] LABS: #Monocytes 0.4 thou/uL (0.11-0.59); #Neutrophils 9.2 thou/uL (1.40-6.50); %Basophils 0.1 % (0.0-1.0); %Eosinophils 0.1 % (0.0-10.0); %Lymphocytes 2.5 % (21.0-51.0); %Monocytes 3.9 % (0.0-10.0); %Neutrophils 92.9 % (42.0-75.0); Hematocrit 44.8 % (42.0-52.0); Hemoglobin 15.4 g/dL (14.0-18.0); Mean Corpuscular HGB CONC 34.4 g/dL (32.0-36.0); Mean Corpuscular Hemoglobin 30.3 pg (27.0-31.0); Mean Platelet Volume 11.8 fL (7.4-10.4); RBC Distribution Width 15.4 % (11.5-14.5); Red Blood Cell (RBC) Count 5.09 mill/uL (4.70-6.10); White Blood Cell (WBC) Count 9.9 10x3/uL (4.8-10.8)
[2023-11-16 17:00] LABS: Platelet Count 134 10x3/uL (130-400)
[2023-11-16 17:07] LABS: ALT (SGPT) 25 U/L (8-55); AST (SGOT) 47 U/L (5-34); Albumin 4.3 g/dL (3.4-4.8); Alkaline Phosphatase 137 U/L (40-110); Anion Gap 16 mmol/L (10-20); BUN (Urea Nitrogen) 32 mg/dL (8.4-25.7); Bilirubin, Total 1.8 mg/dL (0.2-1.2); Calc. Creatinine Clearance 0 mL/min (70-130); Calcium 9.1 mg/dL (7.8-10.44); Carbon Dioxide 25 mmol/L (23-31); Chloride 96 mmol/L (98-107); Estimated GFR 50; Globulin 2.8 g/dL (2.4-3.5); Glucose 173 mg/dL (80-115); Potassium 3.7 mmol/L (3.5-5.1); Protein, Total 7.1 g/dL (5.8-8.1); Sodium 133 mmol/L (136-145)
[2023-11-16] MEDS ORDERED: Vancomycin 1 GM/200 ML (FROZEN) BAG ONE (18:21)
[2023-11-16 19:37] LABS: Lactic Acid 1.5 mmol/L (0.5-2.2)
[2023-11-16] MEDS ORDERED: predniSONE 20 MG TAB ONE ×2 (20:36→20:37)
== END 2023-11-16 20:45 | disposition home or self-care (01) ==
LOC: ERS 16:08
DX: B34.9 Viral infection, unspecified (principal); E86.0 Dehydration; E10.9 Type 1 diabetes mellitus without complications
CPT/HCPCS: 71045; 80053; 83605; 85025; 87040; 87149 ×2; 87804 ×2; J3370; 36415; 87077; 87186; 96361; 96374; J0696; J3490; J7512

== ENCOUNTER 2023-11-19 14:48 | Inpatient (IN) | payer OTHER ==
[2023-11-19] MEDS ORDERED: Diazepam 10 MG/2 ML SYRINGE ONE (15:37)
[2023-11-19] MEDS ORDERED: Morphine 4 MG/ML VIAL ONE ×2 (15:37→20:24)
[2023-11-19 16:21] LABS: Bacteria/HPF None Seen HPF (None Seen); Bilirubin Negative (Negative); Blood, Urine Negative (Negative); CAUTI Indications for Culture Pelvic or flank pain; Clarity Clear (Clear); Glucose, Urine (Dipstick) Greater than 1000 mg/dL (Negative); Ketone, Urine Negative (Negative); Leukocyte Negative Leu/uL (Negative); Nitrite Negative (Negative); Protein, Urine (Dipstick) Negative (Neg-Trace); RBC/HPF None Seen HPF (0-3); Specific Gravity, Urine 1.019 (1.002-1.036); Squamous Epithelial 0-3 HPF (0-3); Urobilinogen Normal mg/dL (Less than 2); WBC/HPF 0-3 HPF (0-3); pH, Urine 6.5 (5.0-9.0)
[2023-11-19 16:25] LABS: Urine Culture Reflex No No
[2023-11-19 16:53] LABS: #Monocytes 0.5 thou/uL (0.11-0.59); #Neutrophils 6.4 thou/uL (1.40-6.50); %Basophils 0.1 % (0.0-1.0); %Monocytes 6.3 % (0.0-10.0); %Neutrophils 84.4 % (42.0-75.0); Hematocrit 45.6 % (42.0-52.0); Hemoglobin 15.6 g/dL (14.0-18.0); Mean Corpuscular HGB CONC 34.2 g/dL (32.0-36.0); Mean Corpuscular Hemoglobin 30.3 pg (27.0-31.0); Mean Corpuscular Volume 88.5 fl (78.0-98.0); Mean Platelet Volume 11.7 fL (7.4-10.4); Platelet Count 140 10x3/uL (130-400); RBC Distribution Width 14.8 % (11.5-14.5); Red Blood Cell (RBC) Count 5.15 mill/uL (4.70-6.10); White Blood Cell (WBC) Count 7.6 10x3/uL (4.8-10.8)
[2023-11-19 17:07] LABS: ALT (SGPT) 16 U/L (8-55); AST (SGOT) 19 U/L (5-34); Albumin 4.2 g/dL (3.4-4.8); Alkaline Phosphatase 117 U/L (40-110); Anion Gap 19 mmol/L (10-20); BUN (Urea Nitrogen) 30 mg/dL (8.4-25.7); Bilirubin, Total 1.1 mg/dL (0.2-1.2); Calc. Creatinine Clearance 0 mL/min (70-130); Calcium 9.3 mg/dL (7.8-10.44); Carbon Dioxide 21 mmol/L (23-31); Chloride 100 mmol/L (98-107); Estimated GFR 76; Globulin 3.1 g/dL (2.4-3.5); Glucose 210 mg/dL (80-115); Lipase 26 U/L (8-78); Potassium 3.7 mmol/L (3.5-5.1); Protein, Total 7.3 g/dL (5.8-8.1); Sodium 136 mmol/L (136-145)
[2023-11-19] MEDS ORDERED: Ketorolac Tromethamine 30 MG (1 mL) VIAL ONE (20:24)
[2023-11-19] MEDS ORDERED: Dextrose 50% Abboject 50 ML SYRINGE SLOW IVP PRN (21:59)
[2023-11-19] MEDS ORDERED: Dextrose 5% in Water 1,000 ML IV PRN (21:59)
[2023-11-19] MEDS ORDERED: Glucagon 1 MG/ML KIT IM PRN (21:59)
[2023-11-19 22:48] LABS: Hemoglobin A1c 6.8 % (4.0-6.0)
[2023-11-20] MEDS: Morphine 4 MG/ML VIAL SLOW IVP PRN (01:04)
[2023-11-20 01:07] VITALS: BMI 43.2
[2023-11-20 04:54] LABS: #Monocytes 0.7 thou/uL (0.11-0.59); %Basophils 0.2 % (0.0-1.0); %Lymphocytes 5.1 % (21.0-51.0); %Monocytes 6.5 % (0.0-10.0); Hematocrit 41.9 % (42.0-52.0); Hemoglobin 14.1 g/dL (14.0-18.0); Mean Corpuscular HGB CONC 33.7 g/dL (32.0-36.0); Mean Corpuscular Volume 89.1 fl (78.0-98.0); Mean Platelet Volume 11.5 fL (7.4-10.4); Platelet Count 135 10x3/uL (130-400); RBC Distribution Width 15.1 % (11.5-14.5); White Blood Cell (WBC) Count 10.4 10x3/uL (4.8-10.8)
[2023-11-20 05:42] LABS: Anion Gap 16 mmol/L (10-20); BUN (Urea Nitrogen) 30 mg/dL (8.4-25.7); Calc. Creatinine Clearance 109 mL/min (70-130); Calcium 8.6 mg/dL (7.8-10.44); Carbon Dioxide 21 mmol/L (23-31); Chloride 99 mmol/L (98-107); Estimated GFR 64; Glucose 183 mg/dL (80-115); Potassium 3.1 mmol/L (3.5-5.1); Sodium 133 mmol/L (136-145)
[2023-11-20] MEDS: HYDROcodone/Acetaminophen 7.5/325 mg Tablet PO PRN (05:47)
[2023-11-20] MEDS: Vancomycin (BATCH) 2 GM in Premix 1 BAG IVPB SCH (05:54)
[2023-11-20 06:29] LABS: #Monocytes 0.6 thou/uL (0.11-0.59); #Neutrophils 9.4 thou/uL (1.40-6.50); %Basophils 0.3 % (0.0-1.0); %Lymphocytes 6.6 % (21.0-51.0); %Monocytes 5.3 % (0.0-10.0); %Neutrophils 86.9 % (42.0-75.0); Hematocrit 41.6 % (42.0-52.0); Hemoglobin 13.9 g/dL (14.0-18.0); Mean Corpuscular HGB CONC 33.4 g/dL (32.0-36.0); Mean Corpuscular Hemoglobin 29.4 pg (27.0-31.0); Mean Corpuscular Volume 88.1 fl (78.0-98.0); Mean Platelet Volume 10.9 fL (7.4-10.4); Platelet Count 134 10x3/uL (130-400); RBC Distribution Width 15.2 % (11.5-14.5); Red Blood Cell (RBC) Count 4.72 mill/uL (4.70-6.10); White Blood Cell (WBC) Count 10.8 10x3/uL (4.8-10.8)
[2023-11-20] MEDS: Enoxaparin 40 MG (0.4 mL) SYRINGE SC SCH (08:23)
[2023-11-20] MEDS: Famotidine/PF 20 mg/2ml Vial SLOW IVP SCH (08:26)
[2023-11-20] MEDS: Potassium Bicarbonate/Cit Ac 20 MEQ TAB PO SCH (09:19)
[2023-11-20] MEDS: NS 0.9% w/ 40 MEQ KCL 1,000 ML IV SCH (09:20)
[2023-11-20] MEDS: HumaLOG 300 UNITS/3 ML VIAL SC PRN (12:59)
[2023-11-20] MEDS: Ampicillin 2 GM in Sodium Chloride 0.9% 100 ML IVPB SCH (13:17)
[2023-11-20] MEDS: cefTRIAXone\\ROCEPHIN 2 GM in Sodium Chloride 0.9% 100 ML IVPB SCH (14:47)
[2023-11-20] MEDS: Morphine 4 MG/ML VIAL SLOW IVP SCH (17:26)
[2023-11-20] MEDS: Lidocaine 4% Patch TD SCH (17:27)
[2023-11-20] MEDS ORDERED: Insulin Glargine 30 UNITS/0.3 ML VIAL SC SCH (21:00)
[2023-11-20] MEDS ORDERED: Senokot S 8.6-50 MG TAB PO SCH (21:00)
[2023-11-20] MEDS: Insulin Glargine 30 UNITS/0.3 ML VIAL SC SCH (21:34)
[2023-11-20] MEDS: Saccharomyces boulardii 250 MG CAP PO SCH (21:37)
[2023-11-20] MEDS: Famotidine 20 MG TAB PO SCH (21:37)
[2023-11-20] MEDS: Pregabalin 75 MG CAP PO SCH (21:37)
[2023-11-20] MEDS: Senokot S 8.6-50 MG TAB PO SCH (21:37)
[2023-11-20] MEDS: Atorvastatin Calcium 20 MG TAB PO SCH (21:38)
[2023-11-20] MEDS: Morphine 2 MG/ML VIAL SLOW IVP PRN (21:38)
[2023-11-21 05:05] LABS: #Monocytes 0.5 thou/uL (0.11-0.59); #Neutrophils 8.8 thou/uL (1.40-6.50); %Basophils 0.3 % (0.0-1.0); %Eosinophils 0.2 % (0.0-10.0); %Lymphocytes 7.2 % (21.0-51.0); %Monocytes 5.3 % (0.0-10.0); %Neutrophils 85.7 % (42.0-75.0); Hematocrit 40.8 % (42.0-52.0); Hemoglobin 13.6 g/dL (14.0-18.0); Mean Corpuscular HGB CONC 33.3 g/dL (32.0-36.0); Mean Corpuscular Volume 89.9 fl (78.0-98.0); Platelet Count 143 10x3/uL (130-400); RBC Distribution Width 15.1 % (11.5-14.5); Red Blood Cell (RBC) Count 4.54 mill/uL (4.70-6.10); White Blood Cell (WBC) Count 10.3 10x3/uL (4.8-10.8)
[2023-11-21 05:31] LABS: Anion Gap 17 mmol/L (10-20); BUN (Urea Nitrogen) 22 mg/dL (8.4-25.7); Calc. Creatinine Clearance 153 mL/min (70-130); Calcium 8.5 mg/dL (7.8-10.44); Carbon Dioxide 22 mmol/L (23-31); Chloride 100 mmol/L (98-107); Estimated GFR 94; Glucose 128 mg/dL (80-115); Magnesium 2.4 mg/dL (1.6-2.6); Potassium 3.4 mmol/L (3.5-5.1); Sodium 136 mmol/L (136-145)
[2023-11-21] MEDS: Ampicillin 2 GM in Sodium Chloride 0.9% 100 ML IVPB SCH (06:48)
[2023-11-21] MEDS: Transdermal Patch Removal TOP SCH (06:50)
[2023-11-21] MEDS ORDERED: Electrolyte Replacement Protocol 1 EACH FS SCH (08:13)
[2023-11-21] MEDS: Furosemide 40 MG TAB PO SCH (08:15)
[2023-11-21] MEDS: Aspirin 325 MG TAB PO SCH (08:15)
[2023-11-21] MEDS: Potassium Chloride 20 MEQ TAB PO SCH ×2 (08:15→09:43)
[2023-11-21] MEDS: DULoxetine 60 MG CAP PO SCH (08:16)
[2023-11-21] MEDS: Magnesium Oxide 400 MG TAB PO SCH (08:16)
[2023-11-22 06:08] LABS: #Eosinphils 0.1 thou/uL (0.0-0.7); #Monocytes 0.5 thou/uL (0.11-0.59); #Neutrophils 5.8 thou/uL (1.40-6.50); %Basophils 0.4 % (0.0-1.0); %Eosinophils 0.8 % (0.0-10.0); %Lymphocytes 11.4 % (21.0-51.0); %Monocytes 6.7 % (0.0-10.0); %Neutrophils 79.5 % (42.0-75.0); Hematocrit 39.3 % (42.0-52.0); Hemoglobin 13.2 g/dL (14.0-18.0); Mean Corpuscular HGB CONC 33.6 g/dL (32.0-36.0); Mean Corpuscular Hemoglobin 29.7 pg (27.0-31.0); Mean Corpuscular Volume 88.5 fl (78.0-98.0); Platelet Count 167 10x3/uL (130-400); RBC Distribution Width 14.8 % (11.5-14.5); Red Blood Cell (RBC) Count 4.44 mill/uL (4.70-6.10); White Blood Cell (WBC) Count 7.3 10x3/uL (4.8-10.8)
[2023-11-22 06:49] LABS: ALT (SGPT) 12 U/L (8-55); AST (SGOT) 26 U/L (5-34); Albumin 3.2 g/dL (3.4-4.8); Alkaline Phosphatase 102 U/L (40-110); Anion Gap 17 mmol/L (10-20); BUN (Urea Nitrogen) 19 mg/dL (8.4-25.7); Bilirubin, Total 0.9 mg/dL (0.2-1.2); Calc. Creatinine Clearance 173 mL/min (70-130); Calcium 8.9 mg/dL (7.8-10.44); Carbon Dioxide 21 mmol/L (23-31); Chloride 101 mmol/L (98-107); Estimated GFR 98; Glucose 154 mg/dL (80-115); Potassium 3.7 mmol/L (3.5-5.1); Protein, Total 6.2 g/dL (5.8-8.1); Sodium 135 mmol/L (136-145)
[2023-11-22] MEDS: Chlorthalidone 25 MG TAB PO SCH (09:30)
[2023-11-22] MEDS: Allopurinol 300 MG TAB PO SCH (09:31)
[2023-11-23 05:02] LABS: #Eosinphils 0.1 thou/uL (0.0-0.7); #Monocytes 0.5 thou/uL (0.11-0.59); #Neutrophils 3.5 thou/uL (1.40-6.50); %Basophils 0.4 % (0.0-1.0); %Eosinophils 1.6 % (0.0-10.0); %Lymphocytes 15.9 % (21.0-51.0); %Monocytes 9.2 % (0.0-10.0); %Neutrophils 71.1 % (42.0-75.0); Hematocrit 40.2 % (42.0-52.0); Hemoglobin 13.4 g/dL (14.0-18.0); Mean Corpuscular HGB CONC 33.3 g/dL (32.0-36.0); Mean Corpuscular Hemoglobin 29.8 pg (27.0-31.0); Mean Corpuscular Volume 89.5 fl (78.0-98.0); Mean Platelet Volume 10.2 fL (7.4-10.4); Platelet Count 197 10x3/uL (130-400); RBC Distribution Width 14.8 % (11.5-14.5); Red Blood Cell (RBC) Count 4.49 mill/uL (4.70-6.10); White Blood Cell (WBC) Count 4.9 10x3/uL (4.8-10.8)
[2023-11-23 06:01] LABS: Anion Gap 15 mmol/L (10-20); BUN (Urea Nitrogen) 19 mg/dL (8.4-25.7); Calc. Creatinine Clearance 164 mL/min (70-130); Carbon Dioxide 26 mmol/L (23-31); Chloride 97 mmol/L (98-107); Estimated GFR 96; Glucose 153 mg/dL (80-115); Potassium 3.8 mmol/L (3.5-5.1); Sodium 134 mmol/L (136-145)
[2023-11-23] MEDS ORDERED: Phenylephrine 10 MG/ML VIAL ONE (12:03)
[2023-11-23] MEDS ORDERED: Lidocaine 1% PF 5 ML VIAL ONE (12:21)
[2023-11-23] MEDS ORDERED: PROPOFOL 200 MG/20 ML VIAL ONE (12:21)
[2023-11-24] MEDS: Ondansetron PF 4 MG/2 ML Vial IVP PRN (00:08)
[2023-11-24] MEDS: Sodium Chloride 0.9% 0 ML ONE (01:46)
[2023-11-24] MEDS: Sodium Chloride 0.9% 100 ML ONE (01:46)
[2023-11-24] MEDS: Morphine 2 MG/ML VIAL SLOW IVP SCH ×2 (03:23→11:40)
[2023-11-24 05:41] LABS: #Basophils 0.1 thou/uL (0.0-0.2); #Monocytes 0.6 thou/uL (0.11-0.59); #Neutrophils 8.2 thou/uL (1.40-6.50); %Basophils 0.8 % (0.0-1.0); %Eosinophils 0.4 % (0.0-10.0); %Lymphocytes 7.7 % (21.0-51.0); %Monocytes 6.3 % (0.0-10.0); %Neutrophils 83.3 % (42.0-75.0); Hematocrit 44.4 % (42.0-52.0); Hemoglobin 14.7 g/dL (14.0-18.0); Mean Corpuscular HGB CONC 33.1 g/dL (32.0-36.0); Mean Corpuscular Hemoglobin 29.8 pg (27.0-31.0); Mean Corpuscular Volume 89.9 fl (78.0-98.0); Mean Platelet Volume 11.4 fL (7.4-10.4); Platelet Count 170 10x3/uL (130-400); RBC Distribution Width 14.6 % (11.5-14.5); Red Blood Cell (RBC) Count 4.94 mill/uL (4.70-6.10); White Blood Cell (WBC) Count 9.9 10x3/uL (4.8-10.8)
[2023-11-24 06:02] LABS: Anion Gap 16 mmol/L (10-20); BUN (Urea Nitrogen) 21 mg/dL (8.4-25.7); Calc. Creatinine Clearance 160 mL/min (70-130); Calcium 9.2 mg/dL (7.8-10.44); Carbon Dioxide 21 mmol/L (23-31); Chloride 96 mmol/L (98-107); Estimated GFR 96; Glucose 168 mg/dL (80-115); Potassium 4.2 mmol/L (3.5-5.1); Sodium 129 mmol/L (136-145)
[2023-11-24] MEDS: Lorazepam 2 MG/ML VIAL SLOW IVP SCH (11:40)
[2023-11-24] MEDS: Senokot S 8.6-50 MG TAB PO SCH (20:14)
[2023-11-24] MEDS: HumaLOG 300 UNITS/3 ML VIAL SC PRN (20:23)
[2023-11-26 06:44] LABS: Anion Gap 16 mmol/L (10-20); BUN (Urea Nitrogen) 17 mg/dL (8.4-25.7); Calc. Creatinine Clearance 173 mL/min (70-130); Calcium 9.3 mg/dL (7.8-10.44); Carbon Dioxide 25 mmol/L (23-31); Chloride 97 mmol/L (98-107); Estimated GFR 98; Glucose 140 mg/dL (80-115); Potassium 3.8 mmol/L (3.5-5.1); Sodium 134 mmol/L (136-145)
[2023-11-26] MEDS: Polyethylene Glycol 3350 17 GM Packet PO PRN (08:40)
[2023-11-26] MEDS ORDERED: Lidocaine 1% PF 5 ML VIAL ONE (10:07)
[2023-11-26] MEDS ORDERED: Sodium Bicarbonate 2.5 MEQ/5 ML SDV ONE (10:07)
[2023-11-26] MEDS: DAPTOmycin 1,000 MG in Sodium Chloride 0.9% 50 ML IVPB SCH (18:14)
[2023-11-27 07:31] VITALS: BP 137/84; TEMP 98.3
[2023-11-27] MEDS ORDERED: DAPTOmycin 1,000 MG in Sodium Chloride 0.9% 50 ML IVPB SCH (17:00)
== END 2023-11-27 13:50 | disposition home health service (06) | DRG 872 ==
LOC: ERS 14:48 → ERHOLD 21:52 → T4-B 11-20 00:17 → OBSVTOIN 11-20 08:30 → 2NO 11-20 20:25 → T4-A 11-24 19:25
PROVIDERS: ADMIT Hospitalist; ATTEND Family Medicine
PROC: 3E03329 Introduction of Other Anti-infective into Peripheral Vein, Percutaneous Approach (ICD-10-PCS; 2023-11-20)
PROC: B24BZZ4 Ultrasonography of Heart with Aorta, Transesophageal (ICD-10-PCS; 2023-11-23)
PROC: 5A09357 Assistance with Respiratory Ventilation, Less than 24 Consecutive Hours, Continuous Positive Airway Pressure (ICD-10-PCS; 2023-11-23)
PROC: 02HV33Z Insertion of Infusion Device into Superior Vena Cava, Percutaneous Approach (ICD-10-PCS; principal; 2023-11-26)
PROC: B5181ZA Fluoroscopy of Superior Vena Cava using Low Osmolar Contrast, Guidance (ICD-10-PCS; 2023-11-26)
DX: A41.81 Sepsis due to Enterococcus (principal); N17.9 Acute kidney failure, unspecified; E87.1 Hypo-osmolality and hyponatremia; R65.20 Severe sepsis without septic shock; M75.32 Calcific tendinitis of left shoulder; M25.552 Pain in left hip; Z79.899 Other long term (current) drug therapy; Z79.84 Long term (current) use of oral hypoglycemic drugs; Z79.4 Long term (current) use of insulin; I25.10 Atherosclerotic heart disease of native coronary artery without angina pectoris; W18.30XA Fall on same level, unspecified, initial encounter; Z95.1 Presence of aortocoronary bypass graft; N18.2 Chronic kidney disease, stage 2 (mild); I12.9 Hypertensive chronic kidney disease with stage 1 through stage 4 chronic kidney disease, or unspecified chronic kidney disease; E11.22 Type 2 diabetes mellitus with diabetic chronic kidney disease; G47.33 Obstructive sleep apnea (adult) (pediatric); I73.9 Peripheral vascular disease, unspecified; E11.51 Type 2 diabetes mellitus with diabetic peripheral angiopathy without gangrene
CPT/HCPCS: 36415; 36416; 36569; 71045; 74177; 80048; 80053; 81001; 82550; 83036; 83690; 83735; 84484; 85025; 86140; 87040; 87077; 87149; 87186; 93005; 93306; 93312; 94660; 96361; 96374; 96375; C1751; J0290; J0696; J0878; J1650; J1815; J1885; J2060; J2270; J2272; J2371; J2405; J2704; J3360; J3370; J3480; J3490; S0028

== ENCOUNTER 2024-03-30 10:45 | Day surgery (SDC) | payer MEDICARE ==
[2024-03-29 09:43] VITALS: BMI 38.6
[2024-03-30] MEDS ORDERED: PHENYLEPHRINE-NS 100 MCG/ML 10 ML SYRINGE ONE (13:48)
[2024-03-30] MEDS ORDERED: PROPOFOL 20 ML ONE (13:48)
[2024-03-30] MEDS ORDERED: Lidocaine 1% PF 5 ML VIAL ONE (14:27)
== END 2024-03-30 16:20 | disposition home or self-care (01) ==
LOC: SDC 10:45
PROVIDERS: ATTEND Internal Medicine Cardiovascular Disease
PROC: B246ZZ4 Ultrasonography of Right and Left Heart, Transesophageal (ICD-10-PCS; principal; 2024-03-30)
DX: I33.0 Acute and subacute infective endocarditis (principal); I10 Essential (primary) hypertension; I87.2 Venous insufficiency (chronic) (peripheral); E11.42 Type 2 diabetes mellitus with diabetic polyneuropathy; I25.10 Atherosclerotic heart disease of native coronary artery without angina pectoris; I73.9 Peripheral vascular disease, unspecified; I35.0 Nonrheumatic aortic (valve) stenosis; Z95.1 Presence of aortocoronary bypass graft; Z98.890 Other specified postprocedural states; Z87.891 Personal history of nicotine dependence; Z95.2 Presence of prosthetic heart valve
CPT/HCPCS: 82962; 93005; 93312; J2704; 36416; 93010

== ENCOUNTER 2024-06-10 08:52 | Inpatient (IN) | payer MEDICARE ==
[2024-06-10 10:08] LABS: #Basophils Less than 0.03 10x3/uL (0.0-0.2); %Basophils 0.3 % (0.0-1.0); %Eosinophils 2.1 % (0.0-10.0); %Lymphocytes 4.7 % (21.0-51.0); %Neutrophils 89.6 % (42.0-75.0); Hematocrit 27.7 % (42.0-52.0); Hemoglobin 8.4 g/dL (14.0-18.0); Mean Corpuscular HGB CONC 30.3 g/dL (32.0-36.0); Mean Corpuscular Hemoglobin 27.5 pg (27.0-31.0); Mean Corpuscular Volume 90.5 fL (78.0-98.0); Mean Platelet Volume 9.8 fL (7.4-10.4); Platelet Count 205 10x3/uL (130-400); RBC Distribution Width 17.2 % (11.5-14.5); Red Blood Cell (RBC) Count 3.06 mill/uL (4.70-6.10)
[2024-06-10 10:36] LABS: ALT (SGPT) 11 U/L (8-55); AST (SGOT) 17 U/L (5-34); Albumin 2.8 g/dL (3.4-4.8); Alkaline Phosphatase 137 U/L (40-110); Anion Gap 14 mmol/L (10-20); BUN (Urea Nitrogen) 15 mg/dL (8.4-25.7); Bilirubin, Total 0.7 mg/dL (0.2-1.2); Calc. Creatinine Clearance 0 mL/min (70-130); Calcium 8.7 mg/dL (7.8-10.44); Carbon Dioxide 28 mmol/L (23-31); Chloride 101 mmol/L (98-107); Estimated GFR 96; Globulin 3.4 g/dL (2.4-3.5); Glucose 65 mg/dL (80-115); Potassium 4.1 mmol/L (3.5-5.1); Protein, Total 6.2 g/dL (5.8-8.1); Sodium 139 mmol/L (136-145)
[2024-06-10 10:49] LABS: Troponin I 0.072 ng/mL (< 0.028)
[2024-06-10] MEDS ORDERED: Furosemide 40 MG (4 mL) VIAL ONE (11:27)
[2024-06-10] MEDS ORDERED: Glucagon 1 MG/ML KIT IM PRN (12:05)
[2024-06-10] MEDS ORDERED: Ondansetron PF 4 MG/2 ML Vial IVP PRN (12:05)
[2024-06-10] MEDS ORDERED: Guaifenesin DM 100-10/5 ML UDCUP PO PRN (12:05)
[2024-06-10] MEDS ORDERED: Dextrose 50% Abboject 50 ML SYRINGE SLOW IVP PRN (12:05)
[2024-06-10] MEDS ORDERED: Insulin Lispro 100 UNIT/ML 10 ML VIAL SC PRN ×2 (12:05)
[2024-06-10] MEDS ORDERED: Dextrose 5% in Water 1,000 ML IV PRN (12:05)
[2024-06-10] MEDS ORDERED: Ampicillin 2 GM VIAL IVPB SCH (13:00)
[2024-06-10 13:11] VITALS: BMI 42.3
[2024-06-10] MEDS ORDERED: Iopamidol-370 76% 500 ML MDV (1 ML CHARGE) ONE (14:05)
[2024-06-10] MEDS: Furosemide 40 MG (4 mL) VIAL SLOW IVP SCH (15:29)
[2024-06-10] MEDS: traMADol HCl 50 MG TAB PO PRN (15:29)
[2024-06-10] MEDS ORDERED: cefTRIAXone (ROCEPHIN) 2 GM VIAL IVPB SCH (16:00)
[2024-06-10] MEDS: cefTRIAXone\\ROCEPHIN 2 GM in Sodium Chloride 0.9% 100 ML IVPB SCH (17:24)
[2024-06-10] MEDS: Pregabalin 50 MG CAP PO SCH (21:42)
[2024-06-10] MEDS: Tamsulosin HCl 0.4 MG CAP PO SCH (21:42)
[2024-06-10] MEDS: Atorvastatin Calcium 40 MG TAB PO SCH (21:42)
[2024-06-10] MEDS: Acetaminophen 325 MG TAB PO PRN (21:46)
[2024-06-11 03:55] LABS: #Basophils Less than 0.03 10x3/uL (0.0-0.2); %Basophils 0.5 % (0.0-1.0); %Eosinophils 14.7 % (0.0-10.0); %Lymphocytes 15.2 % (21.0-51.0); %Monocytes 6.6 % (0.0-10.0); %Neutrophils 62.7 % (42.0-75.0); Hematocrit 29.8 % (42.0-52.0); Hemoglobin 8.9 g/dL (14.0-18.0); Mean Corpuscular HGB CONC 29.9 g/dL (32.0-36.0); Mean Corpuscular Hemoglobin 27.5 pg (27.0-31.0); Mean Platelet Volume 9.5 fL (7.4-10.4); Platelet Count 227 10x3/uL (130-400); RBC Distribution Width 17.5 % (11.5-14.5); Red Blood Cell (RBC) Count 3.24 mill/uL (4.70-6.10)
[2024-06-11] MEDS: cefTRIAXone\\ROCEPHIN 2 GM in Sodium Chloride 0.9% 100 ML IVPB SCH (04:02)
[2024-06-11 04:14] LABS: Anion Gap 16 mmol/L (10-20); BUN (Urea Nitrogen) 14 mg/dL (8.4-25.7); Calc. Creatinine Clearance 157 mL/min (70-130); Calcium 9.2 mg/dL (7.8-10.44); Carbon Dioxide 30 mmol/L (23-31); Chloride 100 mmol/L (98-107); Estimated GFR 95; Glucose 36 mg/dL (80-115); Magnesium 1.6 mg/dL (1.6-2.6); Potassium 3.7 mmol/L (3.5-5.1); Sodium 142 mmol/L (136-145)
[2024-06-11 04:34] LABS: Ferritin 275.88 ng/mL (22-322); Thyroid Stimulating Hormone 11.2968 uIU/mL (0.35-4.94)
[2024-06-11 09:32] LABS: Free T4 (Free Thyroxine) 0.79 ng/dL (0.70-1.48)
[2024-06-11] MEDS: Enoxaparin 40 MG (0.4 mL) SYRINGE SC SCH (10:36)
[2024-06-11] MEDS: Aspirin 81 mg Enteric Coated Tablet PO SCH (10:37)
[2024-06-11] MEDS: Allopurinol 300 MG TAB PO SCH (10:37)
[2024-06-11] MEDS: Metolazone 5 MG TAB PO SCH (10:37)
[2024-06-11] MEDS: Lisinopril 5 MG TAB PO SCH (10:39)
[2024-06-11] MEDS: Polyethylene Glycol 3350 17 GM Packet PO SCH (10:39)
[2024-06-11 11:28] LABS: Hemoglobin A1c 5.3 % (4.0-6.0)
[2024-06-11] MEDS: Ampicillin 2 GM in Sodium Chloride 0.9% 100 ML IVPB SCH (17:37)
[2024-06-12 04:27] LABS: #Basophils 0.03 10x3/uL (0.0-0.2); %Basophils 0.8 % (0.0-1.0); %Monocytes 7.8 % (0.0-10.0); %Neutrophils 59.6 % (42.0-75.0); Hematocrit 29.9 % (42.0-52.0); Mean Corpuscular HGB CONC 30.1 g/dL (32.0-36.0); Mean Corpuscular Hemoglobin 27.4 pg (27.0-31.0); Mean Corpuscular Volume 91.2 fL (78.0-98.0); Platelet Count 229 10x3/uL (130-400); RBC Distribution Width 17.7 % (11.5-14.5); Red Blood Cell (RBC) Count 3.28 mill/uL (4.70-6.10)
[2024-06-12 04:46] LABS: Anion Gap 16 mmol/L (10-20); BUN (Urea Nitrogen) 15 mg/dL (8.4-25.7); Calc. Creatinine Clearance 136 mL/min (70-130); Calcium 9.1 mg/dL (7.8-10.44); Carbon Dioxide 29 mmol/L (23-31); Chloride 98 mmol/L (98-107); Estimated GFR 84; Glucose 152 mg/dL (80-115); Magnesium 1.8 mg/dL (1.6-2.6); Sodium 139 mmol/L (136-145)
[2024-06-12] MEDS: Levothyroxine Sodium 25 MCG TAB PO SCH (08:46)
[2024-06-12] MEDS: Bacitracin 1 PK TOP SCH (08:47)
[2024-06-12] MEDS ORDERED: Melatonin 3 MG TAB PO PRN ×2 (10:08→10:53)
[2024-06-12] MEDS ORDERED: traZODone HCl 50 MG TAB PO PRN ×2 (10:08→10:53)
[2024-06-13] MEDS: Levothyroxine Sodium 25 MCG TAB PO SCH (05:30)
[2024-06-13 07:26] LABS: #Basophils 0.03 10x3/uL (0.0-0.2); %Basophils 0.7 % (0.0-1.0); %Eosinophils 18.1 % (0.0-10.0); %Lymphocytes 13.8 % (21.0-51.0); %Monocytes 7.8 % (0.0-10.0); %Neutrophils 58.9 % (42.0-75.0); Hematocrit 28.1 % (42.0-52.0); Hemoglobin 8.5 g/dL (14.0-18.0); Mean Corpuscular HGB CONC 30.2 g/dL (32.0-36.0); Mean Corpuscular Hemoglobin 27.4 pg (27.0-31.0); Mean Corpuscular Volume 90.6 fL (78.0-98.0); Mean Platelet Volume 9.8 fL (7.4-10.4); Platelet Count 209 10x3/uL (130-400); RBC Distribution Width 17.9 % (11.5-14.5)
[2024-06-13 07:51] LABS: Anion Gap 15 mmol/L (10-20); BUN (Urea Nitrogen) 18 mg/dL (8.4-25.7); Calc. Creatinine Clearance 114 mL/min (70-130); Calcium 8.5 mg/dL (7.8-10.44); Carbon Dioxide 28 mmol/L (23-31); Chloride 97 mmol/L (98-107); Estimated GFR 69; Glucose 155 mg/dL (80-115); Magnesium 1.8 mg/dL (1.6-2.6); Potassium 3.6 mmol/L (3.5-5.1); Sodium 136 mmol/L (136-145)
[2024-06-13] MEDS: Empagliflozin 10 MG TAB PO SCH (08:38)
[2024-06-13] MEDS ORDERED: Metoprolol Tartrate 50 MG TAB PO SCH (10:15)
[2024-06-13] MEDS: Metoprolol Tartrate 25 MG TAB PO SCH ×2 (10:44→20:34)
[2024-06-13] MEDS: Furosemide 20 MG (2 mL) VIAL SLOW IVP SCH (10:44)
[2024-06-13 13:37] VITALS: BMI 41.5
[2024-06-14 07:19] LABS: #Basophils 0.03 10x3/uL (0.0-0.2); %Basophils 0.7 % (0.0-1.0); %Eosinophils 17.8 % (0.0-10.0); %Lymphocytes 17.8 % (21.0-51.0); %Monocytes 8.8 % (0.0-10.0); %Neutrophils 54.2 % (42.0-75.0); Hematocrit 30.5 % (42.0-52.0); Hemoglobin 9.2 g/dL (14.0-18.0); Mean Corpuscular HGB CONC 30.2 g/dL (32.0-36.0); Mean Corpuscular Hemoglobin 27.2 pg (27.0-31.0); Mean Corpuscular Volume 90.2 fL (78.0-98.0); Platelet Count 235 10x3/uL (130-400); RBC Distribution Width 18.1 % (11.5-14.5); Red Blood Cell (RBC) Count 3.38 mill/uL (4.70-6.10)
[2024-06-14 08:00] LABS: Anion Gap 18 mmol/L (10-20); BUN (Urea Nitrogen) 20 mg/dL (8.4-25.7); Calc. Creatinine Clearance 115 mL/min (70-130); Calcium 9.2 mg/dL (7.8-10.44); Carbon Dioxide 29 mmol/L (23-31); Chloride 95 mmol/L (98-107); Estimated GFR 71; Glucose 164 mg/dL (80-115); Magnesium 1.9 mg/dL (1.6-2.6); Potassium 4.2 mmol/L (3.5-5.1); Sodium 138 mmol/L (136-145)
[2024-06-14] MEDS: Furosemide 100 MG in Sodium Chloride 0.9% 100 ML IVPB SCH (12:54)
[2024-06-14] MEDS ORDERED: Iopamidol-370 76% 500 ML MDV (1 ML CHARGE) ONE (15:35)
[2024-06-14] MEDS: Furosemide 100 MG in Sodium Chloride 0.9% 90 ML IVPB SCH (16:36)
[2024-06-15 05:49] LABS: #Basophils 0.03 10x3/uL (0.0-0.2); %Basophils 0.8 % (0.0-1.0); %Eosinophils 18.8 % (0.0-10.0); %Lymphocytes 18.8 % (21.0-51.0); %Monocytes 9.8 % (0.0-10.0); %Neutrophils 51.3 % (42.0-75.0); Hematocrit 31.8 % (42.0-52.0); Hemoglobin 9.9 g/dL (14.0-18.0); Mean Corpuscular HGB CONC 31.1 g/dL (32.0-36.0); Mean Corpuscular Hemoglobin 27.4 pg (27.0-31.0); Mean Corpuscular Volume 88.1 fL (78.0-98.0); Mean Platelet Volume 9.4 fL (7.4-10.4); Platelet Count 216 10x3/uL (130-400); RBC Distribution Width 18.1 % (11.5-14.5); Red Blood Cell (RBC) Count 3.61 mill/uL (4.70-6.10)
[2024-06-15 06:09] LABS: Anion Gap 15 mmol/L (10-20); BUN (Urea Nitrogen) 21 mg/dL (8.4-25.7); Calc. Creatinine Clearance 128 mL/min (70-130); Calcium 9.9 mg/dL (7.8-10.44); Carbon Dioxide 32 mmol/L (23-31); Chloride 92 mmol/L (98-107); Estimated GFR 80; Glucose 153 mg/dL (80-115); Magnesium 1.8 mg/dL (1.6-2.6); Potassium 3.3 mmol/L (3.5-5.1); Sodium 136 mmol/L (136-145)
[2024-06-15] MEDS: Potassium Chloride 20 MEQ in Premix 1 BAG IVPB SCH (08:48)
[2024-06-15] MEDS ORDERED: Bupivacaine PF 0.5% 30 ML VIAL ONE (13:16)
[2024-06-15] MEDS ORDERED: EPINEPHrine 1 MG/ML VIAL ONE (13:16)
[2024-06-15] MEDS ORDERED: fentaNYL PF 100 MCG/2 ML SYRINGE ONE (13:25)
[2024-06-15] MEDS ORDERED: PROPOFOL 20 ML ONE ×2 (13:26→14:30)
[2024-06-15] MEDS ORDERED: Etomidate 40 MG (20 mL) VIAL ONE (14:09)
[2024-06-15] MEDS ORDERED: Lidocaine 1% PF 5 ML VIAL ONE (14:11)
[2024-06-15] MEDS ORDERED: PHENYLEPHRINE-NS 100 MCG/ML 10 ML SYRINGE ONE ×2 (14:22→14:46)
[2024-06-15] MEDS ORDERED: ePHEDrine Sulfate 50 MG/10 ML VIAL ONE (14:30)
[2024-06-15] MEDS ORDERED: Ondansetron PF 4 MG/2 ML Vial ONE (14:43)
[2024-06-15] MEDS ORDERED: fentaNYL 50 mcg/mL 1 mL Vial SLOW IVP PRN (15:03)
[2024-06-16 04:51] LABS: #Basophils 0.03 10x3/uL (0.0-0.2); %Basophils 0.8 % (0.0-1.0); %Eosinophils 16.1 % (0.0-10.0); %Lymphocytes 15.3 % (21.0-51.0); %Monocytes 10.7 % (0.0-10.0); %Neutrophils 56.6 % (42.0-75.0); Hematocrit 28.9 % (42.0-52.0); Hemoglobin 8.9 g/dL (14.0-18.0); Mean Corpuscular HGB CONC 30.8 g/dL (32.0-36.0); Mean Corpuscular Hemoglobin 27.3 pg (27.0-31.0); Mean Corpuscular Volume 88.7 fL (78.0-98.0); Mean Platelet Volume 9.3 fL (7.4-10.4); Platelet Count 213 10x3/uL (130-400); Red Blood Cell (RBC) Count 3.26 mill/uL (4.70-6.10)
[2024-06-16 04:56] LABS: Anion Gap 16 mmol/L (10-20); BUN (Urea Nitrogen) 27 mg/dL (8.4-25.7); Calc. Creatinine Clearance 120 mL/min (70-130); Calcium 9.4 mg/dL (7.8-10.44); Carbon Dioxide 34 mmol/L (23-31); Chloride 88 mmol/L (98-107); Estimated GFR 74; Glucose 144 mg/dL (80-115); Magnesium 1.5 mg/dL (1.6-2.6); Potassium 3.3 mmol/L (3.5-5.1); Sodium 135 mmol/L (136-145)
[2024-06-16] MEDS: Potassium Chloride 20 MEQ TAB PO SCH (08:31)
[2024-06-16] MEDS: Spironolactone 25 MG TAB PO SCH (08:40)
[2024-06-16] MEDS: Magnesium 2 GM/50 ML(in water) 2 GM in Premix 1 BAG IVPB SCH (09:21)
[2024-06-17 05:44] LABS: #Basophils 0.03 10x3/uL (0.0-0.2); %Basophils 0.7 % (0.0-1.0); %Eosinophils 17.4 % (0.0-10.0); %Lymphocytes 19.3 % (21.0-51.0); %Neutrophils 51.4 % (42.0-75.0); Hematocrit 30.6 % (42.0-52.0); Hemoglobin 9.5 g/dL (14.0-18.0); Mean Corpuscular Hemoglobin 27.2 pg (27.0-31.0); Mean Corpuscular Volume 87.7 fL (78.0-98.0); Mean Platelet Volume 10.1 fL (7.4-10.4); Platelet Count 218 10x3/uL (130-400); RBC Distribution Width 17.9 % (11.5-14.5); Red Blood Cell (RBC) Count 3.49 mill/uL (4.70-6.10)
[2024-06-17 06:34] LABS: Chloride 85 mmol/L (98-107); Potassium 3.9 mmol/L (3.5-5.1); Sodium 133 mmol/L (136-145)
[2024-06-17] MEDS: Sacubitril 24MG/Valsartan 26 MG TAB PO SCH (08:42)
[2024-06-17] MEDS: Senokot S 8.6-50 MG TAB PO PRN (08:56)
[2024-06-17 08:57] LABS: Anion Gap 21 mmol/L (10-20); BUN (Urea Nitrogen) 41 mg/dL (8.4-25.7); Calc. Creatinine Clearance 86 mL/min (70-130); Calcium 9.9 mg/dL (7.8-10.44); Carbon Dioxide 33 mmol/L (23-31); Estimated GFR 57; Glucose 165 mg/dL (80-115); Magnesium 1.9 mg/dL (1.6-2.6)
[2024-06-18 04:07] LABS: #Basophils 0.03 10x3/uL (0.0-0.2); %Basophils 0.6 % (0.0-1.0); %Eosinophils 12.4 % (0.0-10.0); %Lymphocytes 14.6 % (21.0-51.0); %Monocytes 9.2 % (0.0-10.0); %Neutrophils 62.2 % (42.0-75.0); Hematocrit 27.4 % (42.0-52.0); Hemoglobin 8.6 g/dL (14.0-18.0); Mean Corpuscular HGB CONC 31.4 g/dL (32.0-36.0); Mean Corpuscular Hemoglobin 27.5 pg (27.0-31.0); Mean Corpuscular Volume 87.5 fL (78.0-98.0); Mean Platelet Volume 10.3 fL (7.4-10.4); Platelet Count 229 10x3/uL (130-400); RBC Distribution Width 18.2 % (11.5-14.5); Red Blood Cell (RBC) Count 3.13 mill/uL (4.70-6.10)
[2024-06-18 04:11] LABS: Anion Gap 18 mmol/L (10-20); BUN (Urea Nitrogen) 58 mg/dL (8.4-25.7); Calc. Creatinine Clearance 47 mL/min (70-130); Calcium 8.7 mg/dL (7.8-10.44); Carbon Dioxide 31 mmol/L (23-31); Chloride 85 mmol/L (98-107); Estimated GFR 27; Glucose 145 mg/dL (80-115); Magnesium 1.8 mg/dL (1.6-2.6); Potassium 3.8 mmol/L (3.5-5.1); Sodium 130 mmol/L (136-145)
[2024-06-18 12:52] VITALS: BP 93/52; TEMP 97.8
[2024-06-18] MEDS ORDERED: Ampicillin 2 GM in Sodium Chloride 0.9% 100 ML IVPB SCH (15:00)
[2024-06-19] MEDS ORDERED: DULoxetine 60 MG CAP PO SCH (09:00)
[2024-06-19] MEDS ORDERED: Tamsulosin HCl 0.4 MG CAP PO SCH (09:00)
== END 2024-06-18 15:39 | disposition home or self-care (01) | DRG 252 ==
LOC: ERS 08:52 → 2SW 11:28 → OBSVTOIN 12:05
PROVIDERS: ADMIT Internal Medicine; ATTEND Family Medicine
PROC: 5A09357 Assistance with Respiratory Ventilation, Less than 24 Consecutive Hours, Continuous Positive Airway Pressure (ICD-10-PCS; 2024-06-11)
PROC: 04QL0ZZ Repair Left Femoral Artery, Open Approach (ICD-10-PCS; principal; 2024-06-15)
PROC: 0JCP0ZZ Extirpation of Matter from Left Lower Leg Subcutaneous Tissue and Fascia, Open Approach (ICD-10-PCS; 2024-06-15)
PROC: 3E033XZ Introduction of Vasopressor into Peripheral Vein, Percutaneous Approach (ICD-10-PCS; 2024-06-15)
DX: I11.0 Hypertensive heart disease with heart failure (principal); I50.23 Acute on chronic systolic (congestive) heart failure; I30.1 Infective pericarditis; R78.81 Bacteremia; Z68.41 Body mass index [BMI] 40.0-44.9, adult; N17.9 Acute kidney failure, unspecified; E11.649 Type 2 diabetes mellitus with hypoglycemia without coma; E66.9 Obesity, unspecified; N40.0 Benign prostatic hyperplasia without lower urinary tract symptoms; I72.4 Aneurysm of artery of lower extremity; G47.33 Obstructive sleep apnea (adult) (pediatric); S30.1XXA Contusion of abdominal wall, initial encounter; I35.0 Nonrheumatic aortic (valve) stenosis; B95.8 Unspecified staphylococcus as the cause of diseases classified elsewhere; E78.5 Hyperlipidemia, unspecified; B95.2 Enterococcus as the cause of diseases classified elsewhere; Z95.1 Presence of aortocoronary bypass graft; Z87.891 Personal history of nicotine dependence; Z98.890 Other specified postprocedural states; E03.9 Hypothyroidism, unspecified; E87.6 Hypokalemia; Z78.9 Other specified health status; Z79.2 Long term (current) use of antibiotics
CPT/HCPCS: 36415; 36416; 71045; 71275; 75635; 80048; 80053; 82728; 83036; 83605; 83735; 83880; 84439; 84443; 84481; 84484; 85025; 87040; 87077; 87149; 93005; 93970; 96374; 96375; 97139; J0171; J0290; J0665; J0696; J1650; J1940; J2405; J2704; J3475; J3480; Q9967

== ENCOUNTER 2024-06-30 21:22 | Inpatient (IN) | payer MEDICARE ==
[2024-06-30 22:06] LABS: #Basophils 0.03 10x3/uL (0.0-0.2); #Eosinophils Less than 0.03 10x3/uL (0.0-0.7); %Basophils 0.3 % (0.0-1.0); %Eosinophils 0.1 % (0.0-10.0); %Lymphocytes 3.6 % (21.0-51.0); %Monocytes 4.9 % (0.0-10.0); %Neutrophils 90.5 % (42.0-75.0); Hematocrit 30.1 % (42.0-52.0); Hemoglobin 9.3 g/dL (14.0-18.0); Mean Corpuscular HGB CONC 30.9 g/dL (32.0-36.0); Mean Corpuscular Hemoglobin 26.1 pg (27.0-31.0); Mean Corpuscular Volume 84.3 fL (78.0-98.0); Mean Platelet Volume 11.1 fL (7.4-10.4); Platelet Count 205 10x3/uL (130-400); RBC Distribution Width 18.5 % (11.5-14.5); Red Blood Cell (RBC) Count 3.57 mill/uL (4.70-6.10)
[2024-06-30 22:18] LABS: ALT (SGPT) 6 U/L (8-55); AST (SGOT) 16 U/L (5-34); Alkaline Phosphatase 137 U/L (40-110); Anion Gap 15 mmol/L (10-20); BUN (Urea Nitrogen) 27 mg/dL (8.4-25.7); Bilirubin, Total 0.7 mg/dL (0.2-1.2); Calc. Creatinine Clearance 0 mL/min (70-130); Calcium 8.8 mg/dL (7.8-10.44); Carbon Dioxide 24 mmol/L (23-31); Chloride 100 mmol/L (98-107); Estimated GFR 59; Globulin 3.3 g/dL (2.4-3.5); Glucose 163 mg/dL (80-115); Magnesium 1.7 mg/dL (1.6-2.6); Potassium 4.3 mmol/L (3.5-5.1); Protein, Total 6.3 g/dL (5.8-8.1); Sodium 135 mmol/L (136-145)
[2024-06-30 22:21] LABS: Troponin I 0.053 ng/mL (< 0.028)
[2024-06-30] MEDS ORDERED: Ondansetron PF 4 MG/2 ML Vial IVP PRN (23:30)
[2024-07-01 00:50] LABS: Lactic Acid 1.69 mmol/L (0.5-2.2)
[2024-07-01 01:53] LABS: Troponin I 0.044 ng/mL (< 0.028)
[2024-07-01] MEDS ORDERED: Electrolyte Replacement Protocol 1 EACH FS SCH (02:28)
[2024-07-01] MEDS: Furosemide 20 MG (2 mL) VIAL SLOW IVP SCH ×2 (02:50→05:31)
[2024-07-01] MEDS: Enoxaparin 30 MG (0.3 mL) SYRINGE SC SCH (02:51)
[2024-07-01] MEDS: Enoxaparin 100 MG (1 mL) SYRINGE SC SCH (02:51)
[2024-07-01] MEDS: Vancomycin (BATCH) 2.5 GM in Premix 1 BAG IVPB SCH (02:51)
[2024-07-01] MEDS: Meropenem 1 GM in Sodium Chloride 0.9% 100 ML IVPB SCH ×2 (02:51→08:21)
[2024-07-01 03:32] LABS: #Basophils 0.03 10x3/uL (0.0-0.2); #Eosinophils Less than 0.03 10x3/uL (0.0-0.7); %Basophils 0.3 % (0.0-1.0); %Eosinophils 0.1 % (0.0-10.0); %Monocytes 5.4 % (0.0-10.0); %Neutrophils 89.7 % (42.0-75.0); Hematocrit 28.1 % (42.0-52.0); Hemoglobin 8.3 g/dL (14.0-18.0); Mean Corpuscular HGB CONC 29.5 g/dL (32.0-36.0); Mean Corpuscular Hemoglobin 25.6 pg (27.0-31.0); Mean Corpuscular Volume 86.7 fL (78.0-98.0); Mean Platelet Volume 10.5 fL (7.4-10.4); Platelet Count 174 10x3/uL (130-400); RBC Distribution Width 18.7 % (11.5-14.5); Red Blood Cell (RBC) Count 3.24 mill/uL (4.70-6.10)
[2024-07-01 03:49] LABS: ALT (SGPT) 5 U/L (8-55); AST (SGOT) 14 U/L (5-34); Albumin 2.7 g/dL (3.4-4.8); Alkaline Phosphatase 119 U/L (40-110); Anion Gap 15 mmol/L (10-20); BUN (Urea Nitrogen) 28 mg/dL (8.4-25.7); Bilirubin, Total 0.6 mg/dL (0.2-1.2); Calc. Creatinine Clearance 105 mL/min (70-130); Calcium 8.3 mg/dL (7.8-10.44); Carbon Dioxide 23 mmol/L (23-31); Chloride 101 mmol/L (98-107); Estimated GFR 65; Globulin 3.2 g/dL (2.4-3.5); Glucose 132 mg/dL (80-115); Potassium 3.8 mmol/L (3.5-5.1); Protein, Total 5.9 g/dL (5.8-8.1); Sodium 135 mmol/L (136-145)
[2024-07-01 05:30] VITALS: BMI 41.1
[2024-07-01] MEDS: Magnesium 2 GM/50 ML(in water) 2 GM in Premix 1 BAG IVPB SCH (05:31)
[2024-07-01 06:11] LABS: Bilirubin Negative (Negative); Blood, Urine Negative (Negative); CAUTI Indications for Culture Fever or rigors; Clarity Clear (Clear); Glucose, Urine (Dipstick) 300 mg/dL (Negative); Ketone, Urine Negative (Negative); Leukocyte Negative Leu/uL (Negative); Nitrite Negative (Negative); Protein, Urine (Dipstick) Negative (Neg-Trace); RBC/HPF 0-3 HPF (0-3); Specific Gravity, Urine 1.004 (1.002-1.036); Squamous Epithelial 0-3 HPF (0-3); Urobilinogen Normal mg/dL (Less than 2); WBC/HPF 0-3 HPF (0-3); pH, Urine 5.5 (5.0-9.0)
[2024-07-01 06:18] LABS: Bacteria/HPF 1+ HPF (None Seen)
[2024-07-01 06:19] LABS: Urine Culture Reflex No No
[2024-07-01 06:32] LABS: Influenza A by NAA Not Detected (NotDetected); Influenza B by NAA Not Detected (NotDetected); SARS-CoV-2 NAA Rapid Test Not Detected (NotDetected)
[2024-07-01] MEDS: FLU (Fluad Triv) TS24-25 (65UP)/MF59C/PF 45 MCG/0.5 ML Syringe IM ONE (06:58)
[2024-07-01] MEDS: Vancomycin 1 GM in Premix 1 BAG IVPB SCH (08:21)
[2024-07-01] MEDS ORDERED: Enoxaparin 40 MG (0.4 mL) SYRINGE SC SCH (09:00)
[2024-07-01 13:25] VITALS: BMI 41.1
[2024-07-01] MEDS: Acetaminophen 325 MG TAB PO PRN (23:26)
[2024-07-01] MEDS ORDERED: Dextrose 5% in Water 1,000 ML IV PRN (23:35)
[2024-07-01] MEDS ORDERED: Dextrose 50% Abboject 50 ML SYRINGE SLOW IVP PRN (23:35)
[2024-07-01] MEDS ORDERED: Glucagon 1 MG/ML KIT IM PRN (23:35)
[2024-07-01] MEDS: Pregabalin 75 MG CAP PO SCH (23:51)
[2024-07-02 03:57] LABS: #Basophils 0.03 10x3/uL (0.0-0.2); %Basophils 0.7 % (0.0-1.0); %Eosinophils 6.9 % (0.0-10.0); %Lymphocytes 8.7 % (21.0-51.0); %Monocytes 5.5 % (0.0-10.0); Hematocrit 26.5 % (42.0-52.0); Hemoglobin 7.9 g/dL (14.0-18.0); Mean Corpuscular HGB CONC 29.8 g/dL (32.0-36.0); Mean Corpuscular Hemoglobin 25.8 pg (27.0-31.0); Mean Corpuscular Volume 86.6 fL (78.0-98.0); Mean Platelet Volume 11.2 fL (7.4-10.4); Platelet Count 189 10x3/uL (130-400); RBC Distribution Width 18.6 % (11.5-14.5); Red Blood Cell (RBC) Count 3.06 mill/uL (4.70-6.10)
[2024-07-02 04:26] LABS: ALT (SGPT) 5 U/L (8-55); AST (SGOT) 13 U/L (5-34); Albumin 2.7 g/dL (3.4-4.8); Alkaline Phosphatase 112 U/L (40-110); Anion Gap 13 mmol/L (10-20); BUN (Urea Nitrogen) 26 mg/dL (8.4-25.7); Bilirubin, Total 0.8 mg/dL (0.2-1.2); Calc. Creatinine Clearance 138 mL/min (70-130); Calcium 8.6 mg/dL (7.8-10.44); Carbon Dioxide 26 mmol/L (23-31); Chloride 101 mmol/L (98-107); Estimated GFR 88; Globulin 3.1 g/dL (2.4-3.5); Glucose 126 mg/dL (80-115); Potassium 3.7 mmol/L (3.5-5.1); Protein, Total 5.8 g/dL (5.8-8.1); Sodium 136 mmol/L (136-145)
[2024-07-02 04:28] LABS: Vancomycin, Random 18.8 ug/mL (See Comment)
[2024-07-02] MEDS: Pregabalin 75 MG CAP PO SCH (08:52)
[2024-07-02] MEDS: DULoxetine 60 MG CAP PO SCH (08:52)
[2024-07-02] MEDS: Enoxaparin 40 MG (0.4 mL) SYRINGE SC SCH (08:52)
[2024-07-02] MEDS: Allopurinol 300 MG TAB PO SCH (08:52)
[2024-07-02] MEDS: Tamsulosin HCl 0.4 MG CAP PO SCH (08:52)
[2024-07-02] MEDS: cefTRIAXone\\ROCEPHIN 2 GM in Sodium Chloride 0.9% 100 ML IVPB SCH (10:00)
[2024-07-02] MEDS: Ampicillin 2 GM in Sodium Chloride 0.9% 100 ML IVPB SCH (10:00)
[2024-07-02] MEDS: Insulin Lispro 100 UNIT/ML 10 ML VIAL SC PRN (11:24)
[2024-07-02] MEDS ORDERED: Ampicillin 125 MG/5 ML VIAL SLOW IVP SCH (13:00)
[2024-07-02] MEDS ORDERED: VANCOMYCIN IVPB PRN (14:10)
[2024-07-02] MEDS: Vancomycin 1 GM in Premix 1 BAG IVPB SCH (14:25)
[2024-07-02] MEDS: Carvedilol 3.125 MG TAB PO SCH (17:09)
[2024-07-02] MEDS: Atorvastatin Calcium 40 MG TAB PO SCH (19:31)
[2024-07-03 04:11] LABS: #Basophils Less than 0.03 10x3/uL (0.0-0.2); %Basophils 0.7 % (0.0-1.0); %Eosinophils 8.8 % (0.0-10.0); %Lymphocytes 15.8 % (21.0-51.0); %Monocytes 9.9 % (0.0-10.0); %Neutrophils 64.4 % (42.0-75.0); Hematocrit 27.5 % (42.0-52.0); Hemoglobin 8.3 g/dL (14.0-18.0); Mean Corpuscular HGB CONC 30.2 g/dL (32.0-36.0); Mean Corpuscular Hemoglobin 25.9 pg (27.0-31.0); Mean Corpuscular Volume 85.9 fL (78.0-98.0); Mean Platelet Volume 10.6 fL (7.4-10.4); Platelet Count 182 10x3/uL (130-400); RBC Distribution Width 18.1 % (11.5-14.5)
[2024-07-03 04:35] LABS: Vancomycin, Random 13.5 ug/mL (See Comment)
[2024-07-03 04:36] LABS: ALT (SGPT) 11 U/L (8-55); AST (SGOT) 20 U/L (5-34); Albumin 2.7 g/dL (3.4-4.8); Alkaline Phosphatase 128 U/L (40-110); Anion Gap 16 mmol/L (10-20); BUN (Urea Nitrogen) 30 mg/dL (8.4-25.7); Bilirubin, Total 0.5 mg/dL (0.2-1.2); Calc. Creatinine Clearance 162 mL/min (70-130); Calcium 8.7 mg/dL (7.8-10.44); Carbon Dioxide 25 mmol/L (23-31); Chloride 100 mmol/L (98-107); Estimated GFR 97; Globulin 3.3 g/dL (2.4-3.5); Glucose 149 mg/dL (80-115); Potassium 3.9 mmol/L (3.5-5.1); Sodium 137 mmol/L (136-145)
[2024-07-03] MEDS: Vancomycin 1 GM in Premix 1 BAG IVPB SCH (05:41)
[2024-07-03] MEDS: Aspirin 81 mg Enteric Coated Tablet PO SCH (09:01)
[2024-07-03] MEDS: Empagliflozin 10 MG TAB PO SCH (09:01)
[2024-07-03] MEDS: Insulin Lispro 100 UNIT/ML 10 ML VIAL SC PRN (22:10)
[2024-07-04] MEDS: Furosemide 40 MG (4 mL) VIAL SLOW IVP SCH (13:59)
[2024-07-05] MEDS ORDERED: Sodium Bicarbonate 2.5 MEQ/5 ML SDV ONE (09:12)
[2024-07-05] MEDS ORDERED: Lidocaine 1% PF 5 ML VIAL ONE (09:12)
[2024-07-05] MEDS ORDERED: Iopamidol 0 ML ONE (09:54)
[2024-07-06 04:45] LABS: Vancomycin, Random 15.8 ug/mL (See Comment)
[2024-07-06 09:42] LABS: Anion Gap 15 mmol/L (10-20); BUN (Urea Nitrogen) 23 mg/dL (8.4-25.7); Calc. Creatinine Clearance 142 mL/min (70-130); Calcium 9.3 mg/dL (7.8-10.44); Carbon Dioxide 27 mmol/L (23-31); Chloride 99 mmol/L (98-107); Estimated GFR 94; Glucose 249 mg/dL (80-115); Potassium 4.1 mmol/L (3.5-5.1); Sodium 137 mmol/L (136-145)
[2024-07-06] MEDS: Furosemide 40 MG TAB PO SCH (13:41)
[2024-07-07 02:25] VITALS: TEMP 97.9
[2024-07-07 05:36] LABS: Anion Gap 14 mmol/L (10-20); BUN (Urea Nitrogen) 22 mg/dL (8.4-25.7); Calc. Creatinine Clearance 151 mL/min (70-130); Calcium 9.3 mg/dL (7.8-10.44); Carbon Dioxide 27 mmol/L (23-31); Chloride 102 mmol/L (98-107); Estimated GFR 96; Glucose 120 mg/dL (80-115); Potassium 3.8 mmol/L (3.5-5.1); Sodium 139 mmol/L (136-145)
[2024-07-07 11:19] VITALS: BP 124/64
== END 2024-07-07 13:50 | disposition home or self-care (01) | DRG 871 ==
LOC: ERS 21:22 → IMCU/EMU 23:30 → 2NO 07-03 18:32
PROVIDERS: ADMIT Internal Medicine; ATTEND Internal Medicine
PROC: 02HV33Z Insertion of Infusion Device into Superior Vena Cava, Percutaneous Approach (ICD-10-PCS; principal; 2024-07-05)
DX: A41.81 Sepsis due to Enterococcus (principal); I33.0 Acute and subacute infective endocarditis; I50.23 Acute on chronic systolic (congestive) heart failure; J96.01 Acute respiratory failure with hypoxia; N17.9 Acute kidney failure, unspecified; D64.9 Anemia, unspecified; I25.10 Atherosclerotic heart disease of native coronary artery without angina pectoris; I11.0 Hypertensive heart disease with heart failure; E66.9 Obesity, unspecified; E11.40 Type 2 diabetes mellitus with diabetic neuropathy, unspecified; E03.9 Hypothyroidism, unspecified; E11.51 Type 2 diabetes mellitus with diabetic peripheral angiopathy without gangrene; N40.0 Benign prostatic hyperplasia without lower urinary tract symptoms; Z95.2 Presence of prosthetic heart valve; G47.33 Obstructive sleep apnea (adult) (pediatric); Z95.1 Presence of aortocoronary bypass graft; Z87.891 Personal history of nicotine dependence; Z99.89 Dependence on other enabling machines and devices; Z79.899 Other long term (current) drug therapy; Z79.4 Long term (current) use of insulin; Z79.84 Long term (current) use of oral hypoglycemic drugs; Z79.85 Long-term (current) use of injectable non-insulin antidiabetic drugs; Z79.82 Long term (current) use of aspirin
CPT/HCPCS: 36415; 36416; 36573; 71045; 80048; 80053; 80202; 81001; 83605; 83735; 83880; 84484; 85025; 85379; 87040; 87077; 87081; 87149; 87186; 93005; 93306; 93970; 94660; 96374; 96375; 97139; J0290; J0696; J1650; J1815; J1940; J2185; J3370; J3370-JW; J3475; Q9967

== ENCOUNTER 2024-08-16 11:17 | Inpatient (IN) | payer MEDICARE ==
[2024-08-16] MEDS ORDERED: Sodium Chloride 0.9% 100 ML ONE (12:24)
[2024-08-16] MEDS ORDERED: Cefepime 2 GM VIAL ONE (12:24)
[2024-08-16 12:39] LABS: Albumin 2.9 g/dL (3.4-4.8); Anion Gap 18 mmol/L (10-20); BUN (Urea Nitrogen) 48 mg/dL (8.4-25.7); Bilirubin, Total 1.4 mg/dL (0.2-1.2); Calc. Creatinine Clearance 0 mL/min (70-130); Carbon Dioxide 19 mmol/L (23-31); Chloride 95 mmol/L (98-107); Estimated GFR 43; Glucose 255 mg/dL (80-115); Potassium 4.6 mmol/L (3.5-5.1); Protein, Total 6.9 g/dL (5.8-8.1); Sodium 127 mmol/L (136-145)
[2024-08-16 12:40] LABS: ALT (SGPT) 17 U/L (8-55); AST (SGOT) 34 U/L (5-34); Alkaline Phosphatase 221 U/L (40-110)
[2024-08-16 12:44] LABS: #Basophils 0.03 10x3/uL (0.0-0.2); #Eosinophils Less than 0.03 10x3/uL (0.0-0.7); %Basophils 0.2 % (0.0-1.0); %Eosinophils 0.1 % (0.0-10.0); %Lymphocytes 2.1 % (21.0-51.0); %Monocytes 3.2 % (0.0-10.0); %Neutrophils 92.5 % (42.0-75.0); Hematocrit 30.5 % (42.0-52.0); Hemoglobin 9.9 g/dL (14.0-18.0); Mean Corpuscular HGB CONC 32.5 g/dL (32.0-36.0); Mean Corpuscular Hemoglobin 24.8 pg (27.0-31.0); Mean Corpuscular Volume 76.4 fL (78.0-98.0); Mean Platelet Volume 10.7 fL (7.4-10.4); Platelet Count 209 10x3/uL (130-400); RBC Distribution Width 19.7 % (11.5-14.5); Red Blood Cell (RBC) Count 3.99 mill/uL (4.70-6.10)
[2024-08-16] MEDS ORDERED: Vancomycin 1 GM/200 ML (FROZEN) BAG ONE (12:59)
[2024-08-16] MEDS ORDERED: Ondansetron PF 4 MG/2 ML Vial IVP PRN (16:12)
[2024-08-16] MEDS ORDERED: Senokot S 8.6-50 MG TAB PO PRN (16:12)
[2024-08-16] MEDS ORDERED: Ondansetron ODT 4 MG TAB PO PRN (16:12)
[2024-08-16] MEDS ORDERED: Calcium Carbonate 500 MG ChewTAB PO PRN (16:12)
[2024-08-16] MEDS ORDERED: Glucagon 1 MG/ML KIT IM PRN (16:16)
[2024-08-16] MEDS ORDERED: Dextrose 5% in Water 1,000 ML IV PRN (16:16)
[2024-08-16] MEDS ORDERED: Dextrose 50% Abboject 50 ML SYRINGE SLOW IVP PRN (16:16)
[2024-08-16 16:42] LABS: Lactic Acid 2.57 mmol/L (0.5-2.2)
[2024-08-16] MEDS: Sodium Chloride 0.9% 1,000 ML IV SCH (17:09)
[2024-08-16 17:12] VITALS: BMI 84.9
[2024-08-16 18:33] LABS: Bacteria/HPF None Seen HPF (None Seen); Bilirubin Negative (Negative); Blood, Urine Trace (Negative); CAUTI Indications for Culture Immunosuppressed; Clarity Clear (Clear); Glucose, Urine (Dipstick) Greater than 1000 mg/dL (Negative); Ketone, Urine Negative (Negative); Leukocyte 75 Leu/uL (Negative); Nitrite Negative (Negative); Protein, Urine (Dipstick) 10 mg/dL (Neg-Trace); RBC/HPF 0-3 HPF (0-3); Specific Gravity, Urine 1.021 (1.002-1.036); Squamous Epithelial None Seen HPF (0-3); Urobilinogen Normal mg/dL (Less than 2)
[2024-08-16 18:53] LABS: Troponin I 0.155 ng/mL (< 0.028)
[2024-08-16 18:54] LABS: Urine Culture Reflex Yes Yes
[2024-08-16] MEDS: Vancomycin (BATCH) 1.5 GM in Premix 1 BAG IVPB SCH (18:54)
[2024-08-16] MEDS: Furosemide 40 MG (4 mL) VIAL ONE (20:06)
[2024-08-16] MEDS: Lorazepam 2 MG/ML VIAL ONE (20:38)
[2024-08-16 20:45] LABS: Actual Bicarbonate (HCO3a) 19.7 mEq/L (22-28); Base Excess (BEa) -4.5 mEq/L (-2.0 to +3.0); CO2 Tension 33.6 mmHg (35.0-45.0); Calcium, Ionized (arterial) 1.12 mmol/L (1.12-1.30); Carboxyhemoglobin (COHb) 1.1 gm% (0.0-3.0); Hematocrit-ABG 34 % (42.0-52.0); Hemoglobin (Hb) 11.4 g/dL (14.0-18.0); O2 Tension (PaO2), arterial 97.9 mmHg (> 80.0); Potassium - ABG Lab 5.87 mmol/L (3.70-5.30); Puncture Site Left Brachial artery; pH, Arterial 7.387 (7.35-7.45)
[2024-08-16] MEDS: Cefepime 2 GM in Sodium Chloride 0.9% 100 ML IVPB SCH (21:53)
[2024-08-16] MEDS: Furosemide 40 MG (4 mL) VIAL SLOW IVP SCH (21:54)
[2024-08-16] MEDS: Lorazepam 2 MG/ML VIAL SLOW IVP SCH (21:54)
[2024-08-16] MEDS: Heparin 5,000 UNITS/ML VIAL SC SCH (21:58)
[2024-08-16] MEDS: Insulin Regular, Human 100 UNIT/ML 10 ML VIAL SC PRN (22:00)
[2024-08-16] MEDS: Insulin Glargine 30 UNITS/0.3 ML VIAL SC SCH (22:03)
[2024-08-16 22:17] LABS: Magnesium 1.9 mg/dL (1.6-2.6)
[2024-08-17] MEDS: Magnesium 2 GM/50 ML(in water) 2 GM in Premix 1 BAG IVPB SCH (03:20)
[2024-08-17] MEDS: Insulin Regular, Human 100 UNIT/ML 10 ML VIAL SC PRN (06:48)
[2024-08-17] MEDS: Aspirin 81 mg Enteric Coated Tablet PO SCH (09:10)
[2024-08-17] MEDS: Insulin Glargine 30 UNITS/0.3 ML VIAL SC SCH (09:10)
[2024-08-17] MEDS: Pantoprazole 40 MG VIAL IVP SCH (09:10)
[2024-08-17 09:12] LABS: Lactic Acid 1.67 mmol/L (0.5-2.2)
[2024-08-17 09:15] LABS: Anion Gap 17 mmol/L (10-20); BUN (Urea Nitrogen) 45 mg/dL (8.4-25.7); Calc. Creatinine Clearance 90 mL/min (70-130); Calcium 9.3 mg/dL (7.8-10.44); Carbon Dioxide 20 mmol/L (23-31); Chloride 102 mmol/L (98-107); Estimated GFR 57; Glucose 226 mg/dL (80-115); Potassium 4.5 mmol/L (3.5-5.1); Sodium 134 mmol/L (136-145)
[2024-08-17 09:28] LABS: Vancomycin, Random 13.9 ug/mL (See Comment)
[2024-08-17 09:38] LABS: #Basophils 0.03 10x3/uL (0.0-0.2); %Basophils 0.2 % (0.0-1.0); %Eosinophils 0.2 % (0.0-10.0); %Lymphocytes 5.9 % (21.0-51.0); %Neutrophils 89.2 % (42.0-75.0); Hematocrit 29.3 % (42.0-52.0); Hemoglobin 9.2 g/dL (14.0-18.0); Mean Corpuscular HGB CONC 31.4 g/dL (32.0-36.0); Mean Corpuscular Hemoglobin 24.5 pg (27.0-31.0); Mean Corpuscular Volume 78.1 fL (78.0-98.0); Platelet Count 185 10x3/uL (130-400); Red Blood Cell (RBC) Count 3.75 mill/uL (4.70-6.10)
[2024-08-17] MEDS ORDERED: VANCOMYCIN 1.25 GM/250 ML BAG 1.25 GM in Premix 1 BAG IVPB SCH (10:00)
[2024-08-17] MEDS: Pregabalin 75 MG CAP PO SCH ×2 (13:12→21:06)
[2024-08-17] MEDS: Tamsulosin HCl 0.4 MG CAP PO SCH (13:12)
[2024-08-17] MEDS: Acetaminophen 325 MG TAB PO PRN (21:06)
[2024-08-18 05:20] LABS: #Basophils 0.03 10x3/uL (0.0-0.2); %Basophils 0.3 % (0.0-1.0); %Eosinophils 1.2 % (0.0-10.0); %Monocytes 4.2 % (0.0-10.0); %Neutrophils 85.3 % (42.0-75.0); Hematocrit 30.2 % (42.0-52.0); Hemoglobin 9.4 g/dL (14.0-18.0); Mean Corpuscular HGB CONC 31.1 g/dL (32.0-36.0); Mean Corpuscular Hemoglobin 24.2 pg (27.0-31.0); Mean Corpuscular Volume 77.8 fL (78.0-98.0); Mean Platelet Volume 10.4 fL (7.4-10.4); Platelet Count 222 10x3/uL (130-400); RBC Distribution Width 19.8 % (11.5-14.5); Red Blood Cell (RBC) Count 3.88 mill/uL (4.70-6.10)
[2024-08-18 06:35] LABS: Anion Gap 16 mmol/L (10-20); BUN (Urea Nitrogen) 33 mg/dL (8.4-25.7); Calc. Creatinine Clearance 109 mL/min (70-130); Calcium 9.3 mg/dL (7.8-10.44); Carbon Dioxide 20 mmol/L (23-31); Chloride 101 mmol/L (98-107); Estimated GFR 71; Glucose 244 mg/dL (80-115); Sodium 133 mmol/L (136-145)
[2024-08-18 22:05] VITALS: TEMP 99.1
[2024-08-19 00:30] VITALS: BP 138/68
[2024-08-19] MEDS ORDERED: Pantoprazole DR 40 MG TAB PO SCH (09:00)
== END 2024-08-19 02:09 | disposition short-term general hospital (02) | DRG 871 ==
LOC: ERS 11:17 → ERHOLD 15:22 → IMCU/EMU 18:54
PROVIDERS: ADMIT Family Medicine; ATTEND Internal Medicine
PROC: 4A033R1 Measurement of Arterial Saturation, Peripheral, Percutaneous Approach (ICD-10-PCS; principal; 2024-08-16)
DX: A41.81 Sepsis due to Enterococcus (principal); I21.A1 Myocardial infarction type 2; J96.00 Acute respiratory failure, unspecified whether with hypoxia or hypercapnia; N17.9 Acute kidney failure, unspecified; I50.22 Chronic systolic (congestive) heart failure; Z68.45 Body mass index [BMI] 70 or greater, adult; E87.20 Acidosis, unspecified; A41.52 Sepsis due to Pseudomonas; B96.5 Pseudomonas (aeruginosa) (mallei) (pseudomallei) as the cause of diseases classified elsewhere; I10 Essential (primary) hypertension; I25.10 Atherosclerotic heart disease of native coronary artery without angina pectoris; G47.33 Obstructive sleep apnea (adult) (pediatric); D64.9 Anemia, unspecified; R65.20 Severe sepsis without septic shock; E66.9 Obesity, unspecified; E03.9 Hypothyroidism, unspecified; I72.4 Aneurysm of artery of lower extremity; N40.1 Benign prostatic hyperplasia with lower urinary tract symptoms; R33.8 Other retention of urine; E11.40 Type 2 diabetes mellitus with diabetic neuropathy, unspecified; E11.51 Type 2 diabetes mellitus with diabetic peripheral angiopathy without gangrene; Z95.2 Presence of prosthetic heart valve; Z79.4 Long term (current) use of insulin; Z99.89 Dependence on other enabling machines and devices; Z95.1 Presence of aortocoronary bypass graft; Z87.891 Personal history of nicotine dependence; Z79.84 Long term (current) use of oral hypoglycemic drugs; Z79.82 Long term (current) use of aspirin; Z79.899 Other long term (current) drug therapy
CPT/HCPCS: 36415; 36416; 36600; 71045; 75635; 80048; 80053; 80202; 81001; 82805; 83605; 83735; 83880; 84484; 85025; 86141; 87040; 87077; 87086; 87149; 87186; 87428; 93005; 93010; 93306; 93970; 94660; 96365; 96367; J0692; J1644; J1815; J1940; J2060; J2470; J3370; J3370-JW; J3475; J7030

== ENCOUNTER 2024-10-10 07:29 | Emergency (ER) | payer MEDICARE, OTHER ==
[2024-10-10 08:33] LABS: ALT (SGPT) 7 U/L (Less than 45); AST (SGOT) 21 U/L (11-34); Albumin 3.1 g/dL (3.1-4.5); Alkaline Phosphatase 147 U/L (40-110); Anion Gap 16 mmol/L (10-20); BUN (Urea Nitrogen) 27 mg/dL (8.4-25.7); Bilirubin, Total 1.4 mg/dL (0.3-1.2); Calc. Creatinine Clearance 0 mL/min (70-130); Calcium 8.6 mg/dL (7.8-10.44); Carbon Dioxide 23 mmol/L (23-31); Chloride 100 mmol/L (98-107); Estimated GFR 80; Globulin 3.7 g/dL (2.4-3.5); Glucose 182 mg/dL (80-115); Potassium 4.5 mmol/L (3.5-5.1); Protein, Total 6.8 g/dL (5.8-8.1); Sodium 134 mmol/L (136-145)
[2024-10-10 08:37] LABS: #Basophils Less than 0.03 10x3/uL (0.0-0.2); %Basophils 0.2 % (0.0-1.0); %Eosinophils 0.5 % (0.0-10.0); %Monocytes 7.5 % (0.0-10.0); %Neutrophils 86.5 % (42.0-75.0); Hematocrit 29.4 % (42.0-52.0); Hemoglobin 9.2 g/dL (14.0-18.0); Mean Corpuscular HGB CONC 31.3 g/dL (32.0-36.0); Mean Corpuscular Hemoglobin 25.3 pg (27.0-31.0); Platelet Count 170 10x3/uL (130-400); RBC Distribution Width 20.7 % (11.5-14.5); Red Blood Cell (RBC) Count 3.63 mill/uL (4.70-6.10)
[2024-10-10 08:39] LABS: Troponin I 0.018 ng/mL (< 0.028)
[2024-10-10] MEDS ORDERED: Vancomycin 1 GM/200 ML (FROZEN) BAG ONE (08:53)
[2024-10-10] MEDS ORDERED: Sodium Chloride 0.9% 100 ML ONE (08:53)
[2024-10-10] MEDS ORDERED: Cefepime 1 GM VIAL ONE (08:53)
[2024-10-10 09:45] LABS: Bacteria/HPF None Seen HPF (None Seen); Bilirubin Negative (Negative); Blood, Urine Negative (Negative); CAUTI Indications for Culture Fever or rigors; Clarity Clear (Clear); Glucose, Urine (Dipstick) Greater than 1000 mg/dL (Negative); Ketone, Urine Negative (Negative); Leukocyte Negative Leu/uL (Negative); Nitrite Negative (Negative); Protein, Urine (Dipstick) 20 mg/dL (Neg-Trace); RBC/HPF None Seen HPF (0-3); Specific Gravity, Urine 1.023 (1.002-1.036); Squamous Epithelial None Seen HPF (0-3); Urobilinogen Normal mg/dL (Less than 2); WBC/HPF 0-3 HPF (0-3)
[2024-10-10 09:47] LABS: Urine Culture Reflex No No
== END 2024-10-10 12:52 | disposition home or self-care (01) ==
LOC: ERS 07:29
DX: J18.9 Pneumonia, unspecified organism (principal); R06.03 Acute respiratory distress; R09.02 Hypoxemia; I25.10 Atherosclerotic heart disease of native coronary artery without angina pectoris; I11.0 Hypertensive heart disease with heart failure; I50.9 Heart failure, unspecified; E11.9 Type 2 diabetes mellitus without complications; Z87.891 Personal history of nicotine dependence; Z95.1 Presence of aortocoronary bypass graft; Z79.82 Long term (current) use of aspirin; Z79.4 Long term (current) use of insulin; Z79.899 Other long term (current) drug therapy
CPT/HCPCS: 71045; 80053; 81001; 83605; 83880; 84484; 85025; 87040; 87428; 93005; J0692; J3370; 87077; 87149; 96365